=== PATIENT | female | born 1940 | race Caucasian/White ===

== ENCOUNTER → 2017-11-20 12:39 | Outpatient (CLI) | payer MEDICARE, MEDICAID, SELFPAY ==
[2017-11-20 13:57] LABS: Hemoglobin A1C 5.3 % (4.5-6.2)
== END ==
PROVIDERS: PCP Nurse Practitioner; Visit Provider Nurse Practitioner
DX: E11.9 Type 2 diabetes mellitus without complications (principal); Z83.3 Family history of diabetes mellitus
CPT/HCPCS: 36415; 83036

== ENCOUNTER 2017-12-23 16:16 | Outpatient (REF) | payer MEDICARE, MEDICAID, SELFPAY ==
[2017-12-23 22:01] LABS: Abs Immature Grans 0.01 k/cumm (0.0-0.09); Absolute Basophil Count 0.02 k/cumm (0.0-0.2); Absolute Eosinophil Count 0.28 k/cumm (0.0-0.7); Absolute Lymphocyte Count 1.99 k/cumm (1.2-3.4); Absolute Monocyte Count 0.81 k/cumm (0.11-0.7); Absolute Neutrophil Count 2.91 k/cumm (1.2-6.7); Basophils % 0.3; Eosinophils % 4.7; HCT 40.7 % (36.0-46.0); HGB 13.3 g/dL (12.0-15.5); Immature Grans % 0.2; Lymphocytes % 33.1; Mean Corp. HGB Concentration 32.7 g/dL (32.0-36.0); Mean Corpuscular Hemoglobin 32.8 pg (27.0-33.0); Mean Corpuscular Volume 100.5 fL (80-95); Mean Platelet Volume 11.1 fL (8.0-11.0); Monocytes % 13.5; Neutrophils % 48.2; Platelet Count 265 x1000/uL (130-400); RBC 4.05 m/cumm (4.00-5.20); RBC Distribution Width 14.3 % (11.7-14.6); White Blood Cell Count 6.02 k/cumm (4.4-10.8)
[2017-12-23 22:17] LABS: ALT 35 U/L (12-78); AST 24 U/L (15-37); Albumin 3.7 g/dL (3.4-5.0); Alkaline Phosphatase 103 U/L (46-116); Anion Gap 6.8 mmol/L (3-11); BUN 23 mg/dL (7-18); Bilirubin, Total 0.3 mg/dL (0.2-1.0); CO2 29.2 mmol/L (21.0-32.0); CREATININE 1.03 mg/dL (0.55-1.02); Chloride 103 mmol/L (98-107); Estimated GFR 51.82 (mL/min/1.73m2); Glucose 70 mg/dL (70-100); Potassium 4.7 mmol/L (3.5-5.1); Sodium 139 mmol/L (136-145)
== END 2017-12-23 16:36 ==
LOC: NCHCN 16:16
PROVIDERS: PCP Nurse Practitioner; Visit Provider Nurse Practitioner
DX: Z51.81 Encounter for therapeutic drug level monitoring (principal); G89.4 Chronic pain syndrome; E03.9 Hypothyroidism, unspecified
CPT/HCPCS: 80053; 85025

== ENCOUNTER 2018-04-01 16:34 | Outpatient (REF) | payer MEDICARE, MEDICAID, SELFPAY ==
[2018-04-01 21:03] LABS: Abs Immature Grans 0.02 k/cumm (0.0-0.09); Absolute Basophil Count 0.02 k/cumm (0.0-0.2); Absolute Eosinophil Count 0.39 k/cumm (0.0-0.7); Absolute Monocyte Count 0.82 k/cumm (0.11-0.7); Absolute Neutrophil Count 4.12 k/cumm (1.2-6.7); Basophils % 0.3; Eosinophils % 5.8; HCT 38.1 % (36.0-46.0); HGB 12.7 g/dL (12.0-15.5); Immature Grans % 0.3; Lymphocytes % 20.7; Mean Corp. HGB Concentration 33.3 g/dL (32.0-36.0); Mean Corpuscular Hemoglobin 33.7 pg (27.0-33.0); Mean Corpuscular Volume 101.1 fL (80-95); Monocytes % 12.1; Neutrophils % 60.8; Platelet Count 257 x1000/uL (130-400); RBC 3.77 m/cumm (4.00-5.20); RBC Distribution Width 14.5 % (11.7-14.6); White Blood Cell Count 6.77 k/cumm (4.4-10.8)
[2018-04-01 21:19] LABS: ALT 26 U/L (12-78); AST 24 U/L (15-37); Albumin 3.7 g/dL (3.4-5.0); Alkaline Phosphatase 107 U/L (46-116); Anion Gap 8.7 mmol/L (3-11); BUN 22 mg/dL (7-18); Bilirubin, Total 0.4 mg/dL (0.2-1.0); CO2 28.3 mmol/L (21.0-32.0); CREATININE 1.09 mg/dL (0.55-1.02); Calcium 9.4 mg/dL (8.5-10.1); Chloride 103 mmol/L (98-107); Estimated GFR 48.55 (mL/min/1.73m2); Glucose 92 mg/dL (70-100); Magnesium 1.8 mg/dL (1.8-2.4); Potassium 4.7 mmol/L (3.5-5.1); Sodium 140 mmol/L (136-145); Total Protein 7.2 g/dL (6.4-8.2)
== END 2018-04-01 16:54 ==
LOC: NCHCN 16:34
PROVIDERS: PCP Nurse Practitioner; Visit Provider Nurse Practitioner
DX: G25.81 Restless legs syndrome (principal); Z51.81 Encounter for therapeutic drug level monitoring; Z79.899 Other long term (current) drug therapy
CPT/HCPCS: 80053; 83735; 85025

== ENCOUNTER 2018-10-07 15:46 | Outpatient (REF) | payer MEDICARE, MEDICAID, SELFPAY ==
[2018-10-07 20:56] LABS: Abs Immature Grans 0.02 k/cumm (0.0-0.09); Absolute Basophil Count 0.02 k/cumm (0.0-0.2); Absolute Eosinophil Count 0.34 k/cumm (0.0-0.7); Absolute Lymphocyte Count 1.66 k/cumm (1.2-3.4); Absolute Neutrophil Count 3.08 k/cumm (1.2-6.7); Basophils % 0.3; Eosinophils % 5.7; HGB 12.9 g/dL (12.0-15.5); Immature Grans % 0.3; Mean Corp. HGB Concentration 33.1 g/dL (32.0-36.0); Mean Corpuscular Hemoglobin 33.4 pg (27.0-33.0); Mean Platelet Volume 11.2 fL (8.0-11.0); Monocytes % 13.5; Neutrophils % 52.2; Platelet Count 272 x1000/uL (130-400); RBC 3.86 m/cumm (4.00-5.20); White Blood Cell Count 5.92 k/cumm (4.4-10.8)
[2018-10-07 21:30] LABS: ALT 31 U/L (12-78); AST 19 U/L (15-37); Anion Gap 7.8 mmol/L (3-11); BUN 21 mg/dL (7-18); CO2 28.2 mmol/L (21.0-32.0); CREATININE 0.96 mg/dL (0.55-1.02); Calcium 9.3 mg/dL (8.5-10.1); Chloride 106 mmol/L (98-107); Estimated GFR 56.06 (mL/min/1.73m2); Glucose 108 mg/dL (70-100); Potassium 4.5 mmol/L (3.5-5.1); Sodium 142 mmol/L (136-145); TSH (W/Ref FT4) 4.08 uIU/mL (0.358-3.74)
[2018-10-07 22:11] LABS: FREE T4 0.99 ng/dL (0.76-1.46)
== END 2018-10-07 16:06 ==
LOC: NCHCN 15:46
PROVIDERS: PCP Nurse Practitioner Family; Visit Provider Nurse Practitioner Family
DX: I10 Essential (primary) hypertension (principal); M06.9 Rheumatoid arthritis, unspecified; E03.9 Hypothyroidism, unspecified
CPT/HCPCS: 80048; 84439; 84443; 84450; 84460; 85025

== ENCOUNTER 2018-12-14 11:13 | Outpatient (CLI) | payer MEDICARE, MEDICAID, SELFPAY ==
[2018-12-14 13:02] LABS: TSH 4.08 uIU/mL (0.36-3.74)
== END 2018-12-14 11:33 ==
PROVIDERS: PCP Nurse Practitioner Family; Visit Provider Nurse Practitioner Family
DX: E03.9 Hypothyroidism, unspecified (principal)
CPT/HCPCS: 36415; 84443

== ENCOUNTER 2018-12-27 15:57 | Emergency (ER) | payer MEDICARE, MEDICAID, SELFPAY ==
[2018-12-27 15:54] VITALS: BP 150/70; PULSE 100; RESP 18; TEMP 36.8; O2SAT 96
--- NOTE | 2018-12-27 16:37 | ED.GENADUL_ITS ---
Discharge Plan Disposition Patient Disposition: HOME Condition: Improving Discharge Details Chief Complaint: Nk/Back Pain Clinical Impression: Back pain Primary Care Provider: Amber Ortega ED Provider: Sin Ching Home Meds and New Rx's Prescriptions: Continued aspirin [Ecotrin Low Strength] 81 MG tablet,delayed release (DR/EC) 1 tab PO DAILY RF: 0 calcium carbonate [Caltrate 600] 600 MG tablet 1 tab PO BID RF: 0 vitamin E 400 UNIT capsule 1 cap PO BID RF: 0 One Daily Women's 1 EACH tablet 1 tab-cap PO DAILY RF: 0 NARCOTIC CONTRACT RF: 0 [id number] [Osteo Bi-Flex (5-Loxin)] 1 EACH tablet 1 ea PO DAILY RF: 0 atenolol [Tenormin] 25 MG tablet 1 tab PO DAILY Qty: 90 RF: 4 folic acid 1 MG tablet 1 tab PO DAILY Qty: 90 RF: 12 quetiapine [Seroquel] 50 MG tablet 1 tab PO HS Qty: 90 RF: 12 bupropion HCl [Wellbutrin SR] 100 MG tablet extended release 12 hr 1 tab PO DAILY Qty: 90 RF: 4 levothyroxine 75 MCG tablet 75 mcg PO DAILY Qty: 90 RF: 12 ropinirole 0.25 MG tablet 1 - 3 tab PO HS Qty: 90 RF: 3 Narcan 4 MG spray,non-aerosol 4 mg NS ONCE PRNQty: 2 RF: 12 morphine 15 MG tablet extended release 15 mg PO QPM Qty: 15 RF: 0 morphine 30 MG tablet extended release 0 PO QAM Qty: 11 RF: 0 folic acid 1 MG tablet 1 mg PO DAILY RF: 0 oxacillin in dextrose(iso-osm) 2 GM/50 ML piggyback 2 gm IVPB Q4H RF: 0 prednisone 10 MG tablet See Taper mg PO DAILY Qty: 15 RF: 0 Discharge Instructions Instructions: Back Pain (ED) Additional Instructions: Please resume taking your normally prescribed pain medication, morphine, and perform your normal activities with restrictions of any heavy lifting severe bending or twisting. Follow-up with your primary care provider if your back pain continues. You may leave your pain patch that was provided to you on until tomorrow morning. Return to the emergency department for any new or significant worsening of symptoms or further concerns. Referrals: Amber Ortega [Primary Care Provider] - (As needed for reassessment or if not improving) Discharge Data Discharge Date/Time-TO BE ENTERED AT DEPARTURE: 12/27/18 18:09 Medical Decision Making Patient presenting the emergency department for chief complaint of back pain. Patient states that her back pain started this morning when she woke up and attempted to get out of bed. She states that she took some of her normal prescribe morphine which did not seem to eliminate the back pain and due to this ended up calling 911 for transfer to the emergency department. Patient states that the this is similar to her previous episodes of back pain, she states that she gets these both in the lower and mid back, patient denies any injury or trauma, chest pain, pain with inspiration, cough, fever chills. Physical exam shows clear lung sounds, normal cardiac exam, significant scoliosis of the spine, patient stating superficial right-sided thoracic mid back pain without any specific point tenderness, no vertebral tenderness, no rash or abnormality noted. Given significant scoliosis I do feel that radiological imaging is warranted to assess for any acute changes but otherwise I feel this is a exacerbation of her chronic back pain. Pending results patient given Tylenol, IM morphine, and lidocaine patch Review of imaging shows Degenerative spondylosis and scoliosis.2. Anterior wedge fracture deformities of L1 and L2 of uncertain age, but likely old. Correlate with location of patient's pain. Patient does not currently have any low back pain so I do not feel that noted fracture is new. Patient was reassessed and states improvement of pain but not fully eliminated. I feel that this is reasonable and patient is agreeable to discharge. She was encouraged to resume her normal prescribe pain medication as written by her primary care provider. Patient to follow-up with primary care provider as needed for reassessment or return for new or worsening symptoms. After discussion of diagnosis and plan of care patient has no further needs, questions, or concerns and states clear understanding to return to the emergency department for any worsening symptoms. HPI General Mode of arrival: EMS . Date/Time Provider Initiated Documentation: 12/27/18 16:11 . Limitations to Documentation: no limitations . Information obtained by: patient, EMS and RN notes reviewed . History of Present Illness 78 year old F presents to the emergency department with the chief complaint of back pain, described as severe and similar to prior episodes, with intensity rated at 10. Quality is described as sharp, and is localized to the back. Patient reports no radiation. Patient started experiencing this hour(s) (8) and it has been constant. No relieving factors improve symptom(s), Patient notes no other symptoms.. Related Data Home Medications Medication Instructions Recorded Confirmed One Daily Women's 1 tab-cap PO DAILY tab-cap 07/13/12 12/27/18 aspirin [Ecotrin Low Strength] 1 tab PO DAILY 07/13/12 12/27/18 calcium carbonate [Caltrate 600] 1 tab PO BID 07/13/12 12/27/18 vitamin E 1 cap PO BID 07/13/12 12/27/18 Narcotic Contract 01/12/13 12/19/14 [id number] serr 1 ea PO DAILY 04/23/15 12/27/18 [Osteo Bi-Flex (5-Loxin)] atenolol [Tenormin] 1 tab PO DAILY #90 tab-cap 03/11/16 12/27/18 bupropion HCl [Wellbutrin SR] 1 tab PO DAILY #90 tab 03/11/16 12/27/18 folic acid 1 tab PO DAILY #90 tab-cap 03/11/16 12/27/18 levothyroxine 75 mcg PO DAILY #90 tab-cap 03/11/12/27/18 quetiapine [Seroquel] 1 tab PO HS #90 tab-cap 03/11/16 12/27/18 ropinirole 1 - 3 tab PO HS #90 tab-cap 05/20/16 12/27/18 Narcan 4 mg NS ONCE PRN #2 spray 08/07/16 12/27/18 morphine 15 mg PO QPM #15 tab-cap 08/07/16 12/27/18 morphine 0 PO QAM #11 tab 10/29/16 folic acid 1 mg PO DAILY tab 06/01/17 12/27/18 oxacillin in dextrose(iso-osm) 2 gm IVPB Q4H bag 06/01/17 12/27/18 prednisone See Taper PO DAILY #15 tab 06/01/17 12/27/18 Previous Rx's Medication Instructions Recorded folic acid 1 mg PO DAILY tab 06/01/17 oxacillin in dextrose(iso-osm) 2 gm IVPB Q4H bag 06/01/17 prednisone See Taper PO DAILY #15 tab 06/01/17 Allergies Allergy/AdvReac Type Severity Reaction Status Date / Time No Known Allergies Allergy Unverified 12/27/18 16:00 General Stated Complaint: Nk/Back Pain PAYTON: 3 Review of Systems Constitutional Constitutional: Denies chills, Denies fever(s) and Denies weakness Cardiovascular Cardiovascular: Denies chest pain and Denies dyspnea on exertion Respiratory Respiratory: Denies cough, Denies pain on inspiration and Denies dyspnea on exertion Gastrointestinal Gastrointestinal: Denies abdominal pain, Denies change in bowel habits, Denies diarrhea, Denies nausea and Denies vomiting Genitourinary Genitourinary: Denies urinary incontinence Musculoskeletal Musculoskeletal: Reports as per HPI, Reports back pain and Denies tingling Neurologic Neurologic: Denies sensory deficit, Denies tingling, Denies paresthesias and Denies weakness PFS Surgical History Cholecystectomy Hysterectomy, 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 Sister Stroke Brother Hyperlipidemia Brother Substance abuse Alcohol abuse Son Hyperlipidemia Daughter Diabetes Daughter Alcohol abuse Daughter No problems noted. Grandfather Heart disease Grandfather Heart disease Grandmother Diabetes Grandmother Heart disease Social History Smoking/Tobacco Use Status: Current every day Drug use: Never Do you feel safe in your relationship?: Yes Exam Const General: cooperative and no acute distress Orientation: alert, awake and oriented x3 Neck Neck: normal visual inspection, full ROM and no meningeal signs Resp Effort & Inspection: normal respiratory effort Auscultation: clear to auscultation bilaterally Cardio Rate: regular rate Rhythm: regular rhythm Heart Sounds: S1 normal and S2 normal Back/Spine/Pelvis Thoracic/Lumbar Spine: pain with thoraco-lumbar ROM, paraspinal tenderness (right mid back), thoraco-lumbar ROM limited, scoliosis, No thoraco-lumbar spasm, No thoracic spinal tenderness and No lumbar spinal tenderness Neuro General: alert, awake and oriented x3 Course Vital Signs Vital signs: Vital Signs Temperature 36.8 C 12/27/18 15:54 Pulse 100 H 12/27/18 15:54 Respiratory Rate 18 12/27/18 15:54 Blood Pressure 150/70 H 12/27/18 15:54 Pulse Oximetry 96 12/27/18 15:54 Temperature 36.8 C 12/27/18 15:54 Temperature Source Skin 12/27/18 15:54 Pulse 100 H 12/27/18 15:54 Respiratory Rate 18 12/27/18 15:54 Respiratory Effort 12/27/18 16:34 Respiratory Depth Normal 12/27/18 16:04 Blood Pressure 150/70 H 12/27/18 15:54 Blood Pressure Position Sitting 12/27/18 15:54 Pulse Oximetry 96 12/27/18 15:54 Oxygen Delivery Method Room Air 12/27/18 15:54 Oxygen Flow Rate 0 12/27/18 15:54 Pain Level 10 12/27/18 16:04 Comment 12/27/18 15:54
--- NOTE | 2018-12-27 16:39 | DI.RAD_ITS ---
EXAM: XR THORACIC SPINE COMPLETE INDICATION: back pain-mid thoracic. COMPARISON: THORACIC SPINE from 03/13/2011 CHEST 2 VIEWS PA,LAT from 06/08/2014 CHEST 2 VIEWS PA,LAT from 05/24/2017 PORTABLE AP CHEST, POST LINE from 06/01/2017 TECHNIQUE: 2D digital imaging was performed. FINDINGS: There is marked scoliosis of the lumbar spine which is apex to the left. There is lumbar spine inst rumentation from prior fusion. There are degenerative changes seen throughout the thoracic spine. A nterior wedge deformities are seen at L1 and L2. They are likely old. The L1 compression deformity was present on the x-ray of the chest from 06/08/2014. The soft tissues are unremarkable. There are surgical clips in the right upper quadrant of the abdomen likely representing prior cholecystectomy. IMPRESSION: 1. Degenerative changes in the thoracic spine. 2. Lumbar scoliosis. 3. Anterior wedge deformities of L1 and L2 of uncertain age but likely old. Please correlate with th e patient's clinical findings.
[2018-12-27] MEDS: Acetaminophen 325 MG TAB 650 MG PO (16:46)
[2018-12-27] MEDS: Lidocaine 5% Patch 1 PATCH TP (16:46)
[2018-12-27] MEDS: MORPHine 10 MG/ML VIAL 6 MG IM (16:47)
--- NOTE | 2018-12-27 17:56 | DI.VRAD_ITS ---
PROCEDURE INFORMATION: Exam: XR Thoracic Spine, 3 Views Exam date and time: 12/27/2018 5:29 PM Clinical history: 78 years old, female; Pain in thoracic spine; Prior surgery; Patient HX: Pain mid-thoracic TECHNIQUE: Imaging protocol: XR of the thoracic spine, 3 views. COMPARISON: No relevant prior studies available. FINDINGS: Vertebrae: Severe scoliosis of the upper lumbar spine, apex to the left. Degenerative spondylosis throughout the thoracic spine. Anterior wedge fracture deformities of L1 and L2 of uncertain age, but likely old. Lower lumbar spinal fusion instrumentation, incompletely visualized. Degenerative spondylosis of the cervical spine. Soft tissues: Unremarkable. IMPRESSION: 1. Degenerative spondylosis and scoliosis. 2. Anterior wedge fracture deformities of L1 and L2 of uncertain age, but likely old. Correlate with location of patient's pain. Dictated and Authenticated by: Arnav López MD. Ordering:GRETEL Vogt MD
[2018-12-27 18:12] VITALS: BP 159/77; PULSE 85; RESP 20; O2SAT 94
== END 2018-12-27 18:09 | disposition home or self-care (01) ==
PROVIDERS: Emergency Provider Nurse Practitioner Family; PCP Nurse Practitioner Family
DX: M54.5 Low back pain (principal)
CPT/HCPCS: 96372; 99284; 72072; J2270

== ENCOUNTER 2019-04-07 16:59 | Outpatient (REF) | payer MEDICARE, MEDICAID, SELFPAY ==
[2019-04-07 22:03] LABS: TSH (W/Ref FT4) 3.74 uIU/mL (0.36-3.74)
== END 2019-04-07 17:19 ==
LOC: NCHCN 16:59
PROVIDERS: PCP Nurse Practitioner Family; Visit Provider Nurse Practitioner Family
DX: E03.9 Hypothyroidism, unspecified (principal)
CPT/HCPCS: 84443

== ENCOUNTER 2019-11-23 17:38 | Emergency (ER) | payer MEDICARE, MEDICAID, SELFPAY ==
[2019-11-23] VITALS (30 sets, daily range): BP systolic 123–142; BP diastolic 51–81; PULSE 79–101; RESP 11–25; TEMP 36.6; O2SAT 88–99
--- NOTE | 2019-11-23 17:59 | W.ED.GENAD ---
Discharge Plan Discharge Details Chief Complaint: Orthopedic Primary Care Provider: Amber Ortega ED Provider: Zander Canela Home Meds and New Rx's Prescriptions: No Action aspirin [Ecotrin Low Strength] 81 MG tablet,delayed release (DR/EC) 1 tab PO DAILY RF: 0 vitamin E 400 UNIT capsule 1 cap PO BID RF: 0 One Daily Women's 1 EACH tablet 1 tab-cap PO DAILY RF: 0 NARCOTIC CONTRACT RF: 0 atenolol [Tenormin] 25 MG tablet 1 tab PO DAILY Qty: 90 RF: 4 quetiapine [Seroquel] 50 MG tablet 1 tab PO HS Qty: 90 RF: 12 bupropion HCl [Wellbutrin SR] 100 MG tablet extended release 12 hr 1 tab PO DAILY Qty: 90 RF: 4 levothyroxine 75 MCG tablet 75 mcg PO DAILY Qty: 90 RF: 12 Narcan 4 MG spray,non-aerosol 4 mg NS ONCE PRNQty: 2 RF: 12 morphine 15 MG tablet extended release 15 mg PO QPM Qty: 15 RF: 0 morphine 30 MG tablet extended release 0 PO QAM Qty: 11 RF: 0 folic acid 1 MG tablet 1 mg PO DAILY RF: 0 Medical Decision Making 79-year-old female presents from home via EMS with complaint of 1 month of lower extremity pain for muscular spasms that seem to be worse in the left leg versus the right. She is afebrile and interactive. I do note muscular spasm of the left calf during my exam which the patient states is painful. Her daughter states her mother has had a one-month decline with increased need for sleep, decreased activity, decreased p.o. intake. She has had in-home home health. She has not had any changes to medications but does continue to take morphine as needed for chronic back pain. She has developed bedsores. She has not had any falls per her daughter. They have begun to consider hospice care. Given the muscular spasms and chief complaint of leg pain, differential diagnosis includes dehydration, electrolyte abnormalities, general decline and malnutrition. Patient had IV access established, given small fluid bolus, given magnesium for smooth muscle relaxation. Mepilex was placed over her coccyx pressure ulcerations. She is referred for laboratory testing and urinalysis. In and out catheterized urine reveals scant urine that that is concentrated with specific gravity greater than 1.03. Remainder of the labs reveal hypomagnesemia of 1.7. Other chemistries show sodium 137, potassium 3.9, chloride 99, bicarb 31, BUN 15, creatinine 0.9. Albumin is noted to be 2.5. Her CBC shows a white count of 13, hemoglobin 10, hematocrit 33, platelets 423. After fluids and magnesium patient is starting to feel some improvement. I discussed with her daughter her findings including evidence of dehydration, hypomagnesemia, poor nutrition. They wish for her to return to home this evening, they will consider further hospice/palliative care and I will ask care management to follow-up on this. HPI General Mode of arrival: EMS. Date/Time Provider Initiated Documentation: 11/23/19 17:52. Limitations to Documentation: no limitations. Information obtained by: patient, family and EMS. History of Present Illness 79 year old F presents to the emergency department with the chief complaint of Left greater than right leg pain and spasms for 1 month, described as moderate, and is localized to the left, right and lower extremity. Patient started experiencing this week(s) and it has been intermittent. No relieving factors improve symptom(s), No exacerbating factors reported . Patient notes denies fever/chills. Patient did receive the following treatments prior to arrival, none Related Data Home Medications Medication Instructions Recorded Confirmed One Daily Women's 1 tab-cap PO DAILY tab-cap 07/13/12 11/23/19 aspirin [Ecotrin Low Strength] 1 tab PO DAILY 07/13/12 11/23/19 vitamin E 1 cap PO BID 07/13/12 11/23/19 Narcotic Contract 01/12/13 12/19/14 atenolol [Tenormin] 1 tab PO DAILY #90 tab-cap 03/11/16 11/23/19 bupropion HCl [Wellbutrin SR] 1 tab PO DAILY #90 tab 03/11/16 11/23/19 levothyroxine 75 mcg PO DAILY #90 tab-cap 03/11/16 11/23/19 quetiapine [Seroquel] 1 tab PO HS #90 tab-cap 03/11/16 11/23/19 Narcan 4 mg NS ONCE PRN #2 spray 08/07/16 11/23/19 morphine 15 mg PO QPM #15 tab-cap 08/07/16 11/23/19 morphine 0 PO QAM #11 tab 10/29/16 folic acid 1 mg PO DAILY tab 06/01/17 11/23/19 Previous Rx's Medication Instructions Recorded folic acid 1 mg PO DAILY tab 06/01/17 Allergies Allergy/AdvReac Type Severity Reaction Status Date / Time No Known Allergies Allergy Unverified 11/23/19 17:55 General Stated Complaint: Orthopedic PAYTON: 3 Review of Systems Narrative: Dry cough. No travel. She is otherwise been well. No change to medications. 6 systems reviewed and otherwise negative [facility] Surgical History Cholecystectomy Hysterectomy, 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 Sister Stroke Brother Hyperlipidemia Brother Substance abuse Alcohol abuse Son Hyperlipidemia Daughter Diabetes Daughter Alcohol abuse Daughter No problems noted. Grandfather Heart disease Grandfather Heart disease Grandmother Diabetes Grandmother Heart disease Social History Smoking/Tobacco Use Status: Former Tobacco Use Alcohol Intake: former Drug use: Never Do you feel safe in your relationship?: Yes Exam Narrative Exam Narrative: GEN: awake, alert. Pleasant, well groomed, interactive. HEAD: Normocephalic, atraumatic ENT: Mucous membranes moist, oropharynx unremarkable, External ear exam unremarkable EYES: PERRL, EOMI NECK: Full ROM, no YOSELIN, no menigismus CHEST/RESP: Nontender, clear to auscultation bilateral, no wheeze/rhonchi/rales CARDIOVASCULAR: RRR, no murmur, rub jessica. 2+ Rad pulse bilateral ABDOMEN: Soft, nontender, no mass. +Bowel sounds. On examination of the back there is coccyx pressure ulcerations bilaterally. EXT: Left calf with muscular spasm present. Range of motion is limited but motor is graded 4 out of 5 throughout the lower extremity Neuro: Grossly normal neurologic exam, conversant, interactive. Psych: Speech fluent Course Vital Signs Vital signs: Vital Signs Temperature 36.6 C 11/23/19 17:42 Pulse 92 H 11/23/19 17:42 Respiratory Rate 18 11/23/19 17:42 Blood Pressure 135/54 L 11/23/19 17:42 Pulse Oximetry 92 L 11/23/19 17:42 Temperature 36.6 C 11/23/19 17:42 Temperature Source Temporal Artery Scan 11/23/19 17:42 Pulse 92 H 11/23/19 17:42 Respiratory Rate 18 11/23/19 17:42 Respiratory Effort Short of Breath 11/23/19 17:47 Blood Pressure 135/54 L 11/23/19 17:42 Blood Pressure Position Supine 11/23/19 17:42 Pulse Oximetry 92 L 11/23/19 17:42 Oxygen Delivery Method Room Air 11/23/19 17:42 Oxygen Flow Rate 0 11/23/19 17:42
[2019-11-23] MEDS: Normal Saline 500 ML IV (18:14)
[2019-11-23] MEDS: MAGNESIUM SULFATE 2 GM/50 ML BAG IVPB (18:14)
[2019-11-23 18:20] LABS: Abs Immature Grans 0.08 10^3/uL (0.0-0.06); Absolute Basophil Count 0.03 10^3/uL (0.0-0.2); Absolute Eosinophil Count 0.24 10^3/uL (0.0-0.7); Absolute Lymphocyte Count 1.16 10^3/uL (1.2-3.4); Absolute Monocyte Count 1.42 10^3/uL (0.1-0.8); Absolute Neutrophil Count 10.37 10^3/uL (1.2-6.7); Basophils % 0.2; Eosinophils % 1.8; HCT 33.4 % (36.0-46.0); HGB 10.3 g/dL (11.2-15.7); Immature Grans % 0.6; Lymphocytes % 8.7; MCH 28.9 pg (27.0-33.0); MCHC 30.8 % (32.0-36.0); MCV 93.8 fL (80-95); MPV 9.7 fL (8.0-11.0); Monocytes % 10.7; Nucleated RBC 0 %; Platelet Count 423 10^3/uL (130-400); RBC 3.56 10^6/uL (3.93-5.22); RDW 16.4 % (11.7-14.6); RDW-SD 55.9 fL; WBC 13.29 10^3/uL (4.4-10.8)
[2019-11-23 18:33] LABS: ALT 18 U/L (14-59); AST 20 U/L (15-37); Albumin 2.5 g/dL (3.4-5.0); Alkaline Phosphatase 113 U/L (46-116); Anion Gap 6.8 mmol/L (3-11); BUN 15 mg/dL (7-18); Bilirubin, Total 0.4 mg/dL (0.2-1.0); CO2 31.2 mmol/L (21.0-32.0); CREATININE 0.91 mg/dL (0.55-1.02); Calcium 10.3 mg/dL (8.5-10.1); Chloride 99 mmol/L (98-107); Estimated GFR 59.48 (mL/min/1.73m2); Glucose 143 mg/dL (74-106); Magnesium 1.7 mg/dL (1.8-2.4); Potassium 3.9 mmol/L (3.5-5.1); Sodium 137 mmol/L (136-145)
[2019-11-23 18:41] LABS: Bilirubin Negative (Negative); Blood Negative (Negative); Clarity Sl Cloudy (Clear); Glucose Negative (Negative); Ketones Negative (Negative); Leukocyte Esterase Negative (Negative); Nitrite Negative (Negative); Specific Gravity >= 1.030 (1.005-1.025); Urobilinogen 0.2 EU/dL (Up TO 0.2); pH 5.5 (5-8)
--- NOTE | 2019-11-23 19:23 | NUR.NOTE ---
Nursing Notereferal to pmd sent to cm on 11/23/19
--- NOTE | 2019-11-25 11:22 | PDOC.ERCMPRO ---
- If Service Date Differs Date of service: 11/25/19 Time of Service: 11:22 Care Management Progress Note At the request of ED provider, CM coordinates referral for outpatient palliative care consult.
== END 2019-11-23 20:55 | disposition home or self-care (01) ==
PROVIDERS: Emergency Provider Emergency Medicine; PCP Nurse Practitioner Family
DX: E86.0 Dehydration (principal); E88.09 Other disorders of plasma-protein metabolism, not elsewhere classified; E83.42 Hypomagnesemia; L89.159 Pressure ulcer of sacral region, unspecified stage; M62.831 Muscle spasm of calf
CPT/HCPCS: 36415; 51701; 80053; 96361; 96365; 96366; 99284; 81003; 83735; 85025

== ENCOUNTER 2019-12-03 12:02 | Inpatient (IN) | payer MEDICARE, MEDICAID, SELFPAY ==
[2019-12-03] VITALS (34 sets, daily range): BP systolic 84–139; BP diastolic 44–90; PULSE 78–104; RESP 10–25; TEMP 36.3–36.6; O2SAT 89–96
--- NOTE | 2019-12-03 11:45 | RT.EKG_ITS ---
APPROVED REPORT Exam: Resting ECG Patient Location: E HR:88 bpm ECG Measurements Heart Rate 88 AXIS NH 164 P 9 QRSd 93 QRS 13 QT 343 T 5 QTc 414 Conclusion Sinus rhythm...normal P axis, V-rate 60- 99 artifact V3
--- NOTE | 2019-12-03 12:13 | DI.RAD_ITS ---
EXAM: XR CHEST 1V IN DI DEPT CLINICAL HISTORY: weakness TECHNIQUE: 2D digital imaging was performed. COMPARISON: CR PORTABLE AP CHEST, POST LINE from 06/01/2017 FINDINGS: There is complete opacification of the left hemithorax. There is marked left-sided volume loss. The right lung appears clear. The aortic arch is calcified. The cardiac silhouette is obscured. IMPRESSION: Left-sided volume loss with complete opacification. DATA REPOSITORY: RADIATION DOSE DELIVERED:
[2019-12-03 12:32] LABS: Abs Immature Grans 0.09 10^3/uL (0.0-0.06); Absolute Eosinophil Count 0.32 10^3/uL (0.0-0.7); Absolute Lymphocyte Count 1.11 10^3/uL (1.2-3.4); Absolute Monocyte Count 0.62 10^3/uL (0.1-0.8); Basophils % 0.3; Eosinophils % 2.1; HCT 35.3 % (36.0-46.0); HGB 10.7 g/dL (11.2-15.7); Immature Grans % 0.6; Lymphocytes % 7.3; MCH 28.8 pg (27.0-33.0); MCHC 30.3 % (32.0-36.0); MCV 95.1 fL (80-95); MPV 9.5 fL (8.0-11.0); Monocytes % 4.1; Neutrophils % 85.6; Nucleated RBC 0 %; Platelet Count 468 10^3/uL (130-400); RBC 3.71 10^6/uL (3.93-5.22); RDW 16.5 % (11.7-14.6); RDW-SD 57.1 fL; WBC 15.23 10^3/uL (4.4-10.8)
[2019-12-03 12:36] LABS: Absolute Basophil Count 0.05 10^3/uL (0.0-0.2); Absolute Neutrophil Count 13.04 10^3/uL (1.2-6.7)
[2019-12-03 12:54] LABS: ALT 28 U/L (14-59); AST 23 U/L (15-37); Albumin 2.5 g/dL (3.4-5.0); Alkaline Phosphatase 133 U/L (46-116); Anion Gap 3.3 mmol/L (3-11); BUN 24 mg/dL (7-18); Bilirubin, Total 0.5 mg/dL (0.2-1.0); CO2 32.7 mmol/L (21.0-32.0); CREATININE 0.98 mg/dL (0.55-1.02); Calcium 10.5 mg/dL (8.5-10.1); Chloride 103 mmol/L (98-107); Estimated GFR 54.61 (mL/min/1.73m2); Glucose 135 mg/dL (74-106); Potassium 4.1 mmol/L (3.5-5.1); Sodium 139 mmol/L (136-145); TSH (W/Ref FT4) 2.44 uIU/mL (0.36-3.74); Total Protein 7.1 g/dL (6.4-8.2)
[2019-12-03 12:57] LABS: Troponin I 0.16 ng/mL (<0.06)
--- NOTE | 2019-12-03 13:00 | RT.EKG_ITS ---
APPROVED REPORT Exam: Resting ECG Patient Location: E HR:90 bpm ECG Measurements Heart Rate 90 AXIS KS 65 P 0 QRSd 97 QRS 31 QT 354 T 2 QTc 434 Conclusion Sinus rhythm...normal P axis, V-rate 60- 99
--- NOTE | 2019-12-03 13:07 | DI.VRAD_ITS ---
PROCEDURE INFORMATION: Exam: CT Head Without Contrast Exam date and time: 12/03/2019 12:42 PM Age: 79 years old Clinical indication: Pain; Headache TECHNIQUE: Imaging protocol: Computed tomography of the head without contrast. COMPARISON: No relevant prior studies available. FINDINGS: Brain: Umana-white matter differentiation is normal. There is no intra-axial hemorrhage. There is no mass effect or midline shift. There are confluent and patchy foci of periventricular and subcortical white matter hypodensity which are nonspecific but could reflect sequela of chronic hypertension, chronic headache or chronic microvascular ischemic disease. There is partial empty sella. Ventricles: There is parenchymal volume loss with compensatory dilatation of ventricles, sulci and basilar cisterns. There is no extra-axial fluid collection. 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 Calvarium and base of the skull are intact. Sinuses: Visualized sinuses are unremarkable. No fluid levels. Mastoid air cells: Visualized mastoid air cells are well aerated. Orbits: Patient is status post cataract extraction in the right globe. Vasculature: There are heavy calcifications of the intradural segment of the left vertebral artery. There are calcifications of the bilateral internal carotid arteries at the siphons. Soft tissues: Unremarkable. IMPRESSION: 1. No acute intracranial abnormality. No acute ischemia or mass effect or acute intracranial hemorrhage. 2. Confluent and patchy foci of periventricular and subcortical white matter hypodensity are nonspecific but could reflect sequela of chronic hypertension, chronic headache or chronic microvascular ischemic disease in a patient of this age. 3. Diffuse parenchymal volume loss. 4. 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 Dictated and Authenticated by: Lokesh Valenzuela MD. Ordering:TREVA Rowan MD
--- NOTE | 2019-12-03 13:15 | DI.CT_ITS ---
EXAM: CT CHEST W CLINICAL HISTORY: Complete L lung opacity,? Pneumo vs atelectasis, TECHNIQUE: Imaging Protocol: Axial computed tomography images with coronal and sagittal reformatted images were created and reviewed CONTRAST MATERIAL: Intravenous: Omnipaque 350 Contrast volume:70 ml. COMPARISON: CT CHEST WITH CONTRAST from 10/03/2009 CR PORTABLE AP CHEST, POST LINE from 06/01/2017 CR,XR XR THORACIC SPINE COMPLETE from 12/27/2018 CR,XR XR CHEST 1V IN DI DEPT from 12/03/2019 FINDINGS: There is near complete collapse of the left lobe. There is minimal aeration. There is a large round ed area occupying the left lower lobe measuring over 7 cm in diameter. This could represent a mass v ersus abscess. There is mass versus mucous plugging involving the left main bronchus. There is a sm all to moderate-sized left pleural effusion. No right pleural effusion is seen. There is mild respi ratory motion. The right lung appears clear. No adenopathy is seen. There is aortic and coronary a rtery calcification. Heart size is normal. The liver shows fatty infiltration. The patient is stat us post cholecystectomy. There is scarring and a small cyst at the upper pole of the right kidney. Pancreas is somewhat atrophic and partially visualized on the exam. Scoliosis and degenerative pemberton ges are noted in the spine. There is minimal anterior wedging of midthoracic vertebral bodies. Ther e is an abnormal lucency in the superior endplate of T6. The findings could represent a metastatic le gonzalez. IMPRESSION: Left-sided volume loss with obstruction at the level of the left main bronchus. Roughly 7 centimeter necrotic appearing mass versus abscess. RADIATION DOSE DELIVERED: Total DLP DATA REPOSITORY: All CT scans at this facility are submitted to the National Radiology Data Registry (NRDR) Dose Index Registry (DIR) with the [employer] (A[employer]). RADIATION OPTIMIZATION: All CT scans at this facility use at least one of these dose optimization te chniques: automated exposure control; mA and/or kV adjustment per patient size (includes targeted exa ms where dose is matched to clinical indication); or iterative reconstruction.
--- NOTE | 2019-12-03 13:18 | DI.VRAD_ITS ---
Addendum created by Lokesh Valenzuela DO on 12/03/2019 1:22:35 PM EDT: Critical finding was communicated to Dr. Gallardo at the time of dictation. Initial report created on 12/03/2019 1:18:00 PM EDT: PROCEDURE INFORMATION: Exam: XR Chest, 1 View Exam date and time: 12/03/2019 12:50 PM Age: 79 years old Clinical indication: Other: Weakness TECHNIQUE: Imaging protocol: XR of the chest Views: 1 view. COMPARISON: CR PORTABLE AP CHEST, POST LINE 06/01/2017 9:34 AM FINDINGS: Lungs: There is diffuse opacification of left lung which has low lung volume with elevation of left hemidiaphragm and leftward mediastinal shift. Pleural space: No pneumothorax. Heart/Mediastinum: There is mediastinal shift to left suggestive of marked left lung volume loss. Heart is not visualized and is obscured due to left lung opacification and leftward shift. Vasculature: There is moderate calcification of arch of aorta. Bones/joints: No acute abnormality. Gastrointestinal tract: There are nonspecific air-filled loops of the bowel below the hemidiaphragm which might be borderline dilated. IMPRESSION: Low left lung volume with complete left lung opacification , elevation of left hemidiaphragm and leftward midline shift suggest marked atelectasis or collapse of lung. Underlying small pleural effusion or consolidation in the left lung cannot be completely excluded. Critical finding is communicated to ER physician at the time of dictation. Dictated and Authenticated by: Lokesh Valenzuela MD. Ordering:TREVA Rowan MD
--- NOTE | 2019-12-03 13:33 | NUR.NOTE ---
Nursing Note: Stage II decubitus ulcer noted on coccyx during inspection with provider.
--- NOTE | 2019-12-03 14:24 | NUR.NOTE ---
Nursing Note: Indwelling garcia placed per provider.
[2019-12-03 14:25] LABS: Bilirubin Negative (Negative); Blood Negative (Negative); Clarity Sl Cloudy (Clear); Glucose Negative (Negative); Ketones Negative (Negative); Leukocyte Esterase Negative (Negative); Nitrite Negative (Negative); Specific Gravity >= 1.030 (1.005-1.025); Urobilinogen 0.2 EU/dL (Up TO 0.2); pH 5.5 (5-8)
[2019-12-03] MEDS: Omnipaque 350 MG/ML 100 ML BTL 70 ML IJ (14:34)
--- NOTE | 2019-12-03 15:24 | W.ED.GENAD ---
Discharge Plan Disposition Patient Disposition: [facility] INPATIENT Condition: Poor Discharge Details Clinical Impression: Collapse of left lung, Leukocytosis, unspecified, Weakness, Non-ST elevation AR (NSTEMI) Admit Date/Time: 12/03/19 14:43 Admit Provider: Kai Dolan Attending Provider: Kai Dolan Primary Care Provider: Amber Ortega ED Provider: Harpal Brush Discharge Data Discharge Date/Time-TO BE ENTERED AT DEPARTURE: 12/03/19 15:59 Medical Decision Making <KYRA Moreno - Last Filed: 12/03/19 16:27> This is an 79-year-old female with history of chronic pain, hypertension, COPD, anemia, presenting via EMS for increased generalized weakness, mild headache, and increased tiredness. I was able to speak with the patient's daughter who reports that she is at her normal baseline status today. Given her age, comorbidities, will initiate a cardiac work-up as well as a CT of her head given her headache. I am told that she took her aspirin today. Case was discussed with Dr. Gallardo who personally evaluated the patient. Please see his note. Laboratory values reveal nonspecific leukocytosis, troponin of 0.16. Initial EKG was reviewed and interpreted by Dr. Gallardo, please see his official report. Sinus rhythm, no STEMI. Chest x-ray read by radiology as left lung volume low with complete left lung opacification, elevation of the left hemidiaphragm and leftward midline shift suggesting marked atelectasis or collapse of lung. Underlying small pleural effusion or consolidation cannot be completely excluded. CT of head without contrast read as no acute intracranial abnormality, no acute ischemia or mass-effect or acute intracranial hemorrhage. Question chronic hypertension, chronic headache or chronic microvascular ischemia. Diffuse parenchymal volume loss. Patient is DNR, DNI, does not want heroic efforts made, does not want antibiotics. It would appear as though the patient is experiencing end NSTEMI. Unclear if there could be a viral myocarditis or other infectious process given her nonspecific leukocytosis. Given her grossly abnormal chest x-ray, CT imaging of the chest with contrast pending. Surprisingly she is compensating well. Heart rate in the 90s. O2 sats 92% on room air, last blood pressure was 124/62. Patient clearly requires admission, given that she is a DNR, DNI, does not want a chest tube, cardiac intervention, etc., I will reach out to our hospitalist team to discuss admission here. I did discuss these findings both with patient and daughter. Patient's daughter Mena understands her mother's wishes, understands the limitations that we are under given her wishes and is comfortable with her staying here at our facility. I discussed the case with our hospitalist team Dr. Dolan. He is agreeable to admission of the patient and at time of admission CT is pending. I did call him once the CT was completed to update him of the results. It was brought to my attention that the repeat troponin was trending upward. We reached out to Dr. Dolan to be sure that he was aware of the troponin. Patient continues to deny any chest pain or shortness of breath. Repeat EKG performed at 1316 reviewed and interpreted by Dr. Gallardo, please see his official report. Sinus rhythm, ventricular rate of 90, no STEMI. Medical Records Medical records reviewed: Yes I reviewed the patient's medical records. Imaging Data Radiologic Study: Attestation: I personally reviewed and interpreted this imaging study as follows: Imaging: CT Scan Radiologist's impression: CT of the chest with contrast read by radiology as complete collapse of left lung with mild to moderate left-sided pleural effusion. Left bronchus is not visualized beyond the left main bronchus suspicious of endoluminal central bronchial mass or large mucous plug. There is central hypodensity within the collapsed lung raising suspicion of mass or part of the lung which could be necrotic or markedly compressed. There is a leftward shift of midline mediastinal structures. Hepatic steatosis. Mild chronic interstitial lung disease of the right lung. Mild intra-and extrahepatic biliary dilatation which is thought to be due to cholecystectomy and advanced age. Mild loss of height of T7 and T8 which is thought to be due to chronic insufficiency basis. Lab Data Lab results reviewed: Yes I reviewed the patient's lab results. Lab results narrative: Laboratory Tests Range/Units 12/03/19 12/03/19 12/03/19 12:25 12:25 12:25 WBC (4.4-10.8) 10^3/uL 15.23 H RBC (3.93-5.22) 10^6/uL 3.71 L Hgb (11.2-15.7) g/dL 10.7 L Hct (36.0-46.0) % 35.3 L MCV (80-95) fL 95.1 H MCH (27.0-33.0) pg 28.8 MCHC (32.0-36.0) % 30.3 L RDW (11.7-14.6) % 16.5 H Plt Count (130-400) 10^3/uL 468 H MPV (8.0-11.0) fL 9.5 Immature Gran % 0.6 Neutrophils % 85.6 Lymphocytes % 7.3 Monocytes % 4.1 Eosinophils % 2.1 Basophils % 0.3 Nucleated RBC % % 0 Absolute Neutrophils (1.2-6.7) 10^3/uL 13.04 H Absolute Lymphocytes (1.2-3.4) 10^3/uL 1.11 L Absolute Monocytes (0.1-0.8) 10^3/uL 0.62 Absolute Eosinophils (0.0-0.7) 10^3/uL 0.32 Absolute Basophils (0.0-0.2) 10^3/uL 0.05 Sodium (136-145) mmol/L 139 Potassium (3.5-5.1) mmol/L 4.1 Chloride (98-107) mmol/L 103 Carbon Dioxide (21.0-32.0) mmol/L 32.7 H Anion Gap (3-11) mmol/L 3.3 BUN (7-18) mg/dL 24 H Creatinine (0.55-1.02) mg/dL 0.98 Estimated GFR/1.73 m2 (mL/min/1.73m2) 54.61 Glucose (74-106) mg/dL 135 H Calcium (8.5-10.1) mg/dL 10.5 H Magnesium (1.8-2.4) mg/dL 2.0 Total Bilirubin (0.2-1.0) mg/dL 0.5 AST (15-37) U/L 23 ALT (14-59) U/L 28 Alkaline Phosphatase (46-116) U/L 133 H Troponin I (<0.06) ng/mL 0.16 H* Total Protein (6.4-8.2) g/dL 7.1 Albumin (3.4-5.0) g/dL 2.5 L Procalcitonin ng/mL 0.1 TSH (0.36-3.74) uIU/mL 2.44 Urine Color (Yellow) Urine Clarity (Clear) Urine pH (5-8) Ur Specific [place] (1.005-1.025) Urine Protein (Negative) mg/dL Urine Ketones (Negative) mg/dL Urine Blood (Negative) Urine Nitrite (Negative) Urine Bilirubin (Negative) Urine Urobilinogen (Up TO 0.2) EU/dL Ur Leukocyte Esterase (Negative) Urine Glucose (Negative) mg/dL Range/Units 12/03/19 14:20 WBC (4.4-10.8) 10^3/uL RBC (3.93-5.22) 10^6/uL Hgb (11.2-15.7) g/dL Hct (36.0-46.0) % MCV (80-95) fL MCH (27.0-33.0) pg MCHC (32.0-36.0) % RDW (11.7-14.6) % Plt Count (130-400) 10^3/uL MPV (8.0-11.0) fL Immature Gran % Neutrophils % Lymphocytes % Monocytes % Eosinophils % Basophils % Nucleated RBC % % Absolute Neutrophils (1.2-6.7) 10^3/uL Absolute Lymphocytes (1.2-3.4) 10^3/uL Absolute Monocytes (0.1-0.8) 10^3/uL Absolute Eosinophils (0.0-0.7) 10^3/uL Absolute Basophils (0.0-0.2) 10^3/uL Sodium (136-145) mmol/L Potassium (3.5-5.1) mmol/L Chloride (98-107) mmol/L Carbon Dioxide (21.0-32.0) mmol/L Anion Gap (3-11) mmol/L BUN (7-18) mg/dL Creatinine (0.55-1.02) mg/dL Estimated GFR/1.73 m2 (mL/min/1.73m2) Glucose (74-106) mg/dL Calcium (8.5-10.1) mg/dL Magnesium (1.8-2.4) mg/dL Total Bilirubin (0.2-1.0) mg/dL AST (15-37) U/L ALT (14-59) U/L Alkaline Phosphatase (46-116) U/L Troponin I (<0.06) ng/mL Total Protein (6.4-8.2) g/dL Albumin (3.4-5.0) g/dL Procalcitonin ng/mL TSH (0.36-3.74) uIU/mL Urine Color (Yellow) Yellow Urine Clarity (Clear) Sl cloudy Urine pH (5-8) 5.5 Ur Specific [place] (1.005-1.025) >= 1.030 H Urine Protein (Negative) mg/dL Negative Urine Ketones (Negative) mg/dL Negative Urine Blood (Negative) Negative Urine Nitrite (Negative) Negative Urine Bilirubin (Negative) Negative Urine Urobilinogen (Up TO 0.2) EU/dL 0.2 Ur Leukocyte Esterase (Negative) Negative Urine Glucose (Negative) mg/dL Negative <Wilfred Gallardo MD - Last Filed: 12/24/19 13:52> Patient seen, examined, and discussed with KYRA Brush. I agree with treatment plan as discussed/documented. HPI <KYRA Moreno - Last Filed: 12/03/19 16:27> General Mode of arrival: EMS. Date/Time Provider Initiated Documentation: 12/03/19 12:05. Limitations to Documentation: altered mental status (Per daughter, at baseline). Information obtained by: patient, family and EMS. HPI Narrative: This is an 79-year-old female with history of decubitus ulcer of the coccyx, hypertension, COPD, microcytic anemia, who lives at home with her daughter. Patient is a DNR, DNI, no heroic measures. Apparently she woke up this morning feeling at her baseline. After having breakfast her daughter felt as though she was slightly more tired than her baseline, she had generalized weakness, and complained of a mild headache. Patient tells me that she often has headaches and this did not appear to be any different than her normal headache. She reports a mild dull left-sided headache now. She denies recent illness or trauma. She denies striking her head, visual changes, neck pain, chest pain, shortness of breath, abdominal pain, nausea, vomiting, diarrhea, dysuria, focal weakness, numbness, tingling, weakness. Patient is a rather vague and poor historian at her baseline. I was able to speak with her daughter who confirms that this is her mother's baseline mental status. All appropriate medications were taken this morning Related Data Home Medications Medication Instructions Recorded Confirmed aspirin [Ecotrin Low Strength] 1 tab PO DAILY 07/13/12 12/03/19 Narcotic Contract 01/12/13 12/19/14 bupropion HCl [Wellbutrin SR] 1 tab PO DAILY #90 tab 03/11/16 12/03/19 levothyroxine 75 mcg PO DAILY #90 tab-cap 03/11/16 12/03/19 quetiapine [Seroquel] 1 tab PO HS #90 tab-cap 03/11/16 12/03/19 Narcan 4 mg NS ONCE PRN #2 spray 08/07/16 12/03/19 morphine 15 mg PO .EVERY OTHER AMY #15 08/07/16 12/03/19 tab-cap morphine 30 mg PO QAM #11 tab 10/29/16 12/03/19 lidocaine 1 applic TOPICAL .2-3 X DAILY 12/03/19 12/03/19 methotrexate sodium 15 mg PO .Q Thursday12/03/19 12/03/19 metoprolol tartrate 25 mg PO BID 12/03/19 12/03/19 morphine 30 mg PO .EVERY OTHER AMY 12/03/19 12/03/19 amoxicillin-pot clavulanate 1 tab PO BID #10 tab 12/05/19 [Augmentin] fentanyl 50 mcg/hr transdermal 1 patch TRANSDERMAL Q72H #5 ea MDD 12/14/19 patch 1 patch Previous Rx's Medication Instructions Recorded amoxicillin-pot clavulanate 1 tab PO BID #10 tab 12/05/19 [Augmentin] fentanyl 50 mcg/hr transdermal 1 patch TRANSDERMAL Q72H #5 ea MDD 12/14/19 patch 1 patch Allergies Allergy/AdvReac Type Severity Reaction Status Date / Time No Known Allergies Allergy Unverified 12/03/19 12:13 General Stated Complaint: GenMedical PAYTON: 2 Review of Systems <KYRA Moreno - Last Filed: 12/03/19 16:27> Constitutional Constitutional: Reports fatigue and Denies fever(s) Eyes Eyes: Denies change in vision ENT Ears, Nose, Mouth, and Throat: Denies neck pain Cardiovascular Cardiovascular: Denies chest pain and Denies dyspnea Respiratory Respiratory: Denies cough and Denies dyspnea Gastrointestinal Gastrointestinal: Denies abdominal pain, Denies diarrhea, Denies nausea and Denies vomiting Genitourinary Genitourinary: Denies dysuria Musculoskeletal Musculoskeletal: Reports back pain (Chronic), Denies neck pain, Denies numbness and Denies tingling Integumentary/Breasts Skin/Breast: Denies rash Neurologic Neurologic: Denies numbness and Denies tingling Endocrine Endocrine: Reports fatigue Hematologic/Lymphatic Hematologic/Lymphatic: Denies easy bleeding and Denies easy bruising PFSH <KYRA Moreno - Last Filed: 12/03/19 16:27> Surgical History Cholecystectomy Hysterectomy, 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 Sister Stroke Brother Hyperlipidemia Brother Substance abuse Alcohol abuse Son Hyperlipidemia Daughter Diabetes Daughter Alcohol abuse Daughter No problems noted. Grandfather Heart disease Grandfather Heart disease Grandmother Diabetes Grandmother Heart disease Social History Smoking/Tobacco Use Status: Former Tobacco Use Alcohol Intake: former Drug use: Never Do you feel safe at home: Yes Do you feel safe in your relationship?: Yes Exam <KYRA Moreno - Last Filed: 12/03/19 16:27> Const General: cooperative and no acute distress Orientation: alert, awake, oriented to person, oriented to place and not oriented to time [facility] Head: normal to inspection, normocephalic and atraumatic General nose exam: external nose normal Face and sinus: normal facial exam Mouth: moist mucous membranes abnormal (Slightly dry) Throat: posterior oropharynx normal Eyes General: appearance normal, both eyes and all related structures Alignment and Position: alignment normal Periorbital: periorbital findings normal Eyelids: eyelids normal Conjunctivae: conjunctivae normal Sclera: sclerae normal Cornea: corneas normal EOM: EOM intact bilaterally Direct ophthalmoscopy: normal light reflex Neck Neck: normal visual inspection, full ROM, meningismus present, trachea midline, supple and nontender Chest Chest: normal inspection of the chest and normal palpation of entire chest wall Resp Effort & Inspection: normal respiratory effort and able to speak in complete sentences Auscultation: breath sounds absent on th left Cardio Rate: regular rate Rhythm: regular rhythm GI Palpation: soft and nontender Auscultation: normal bowel sounds Back/Spine/Pelvis Back: no CVA tenderness and back tenderness (Diffuse mild lumbar) Pelvis: other (Stage II-III decubitus ulcer, no local infection) Coccyx: other (Stage II-III decubitus ulcer, no local infection) Skin Rashes: other (Cinthya-like rash in pannus) Neuro General: patient alert, patient awake, oriented Patient Orientation: Person and Place, moves all extremities and no focal motor deficits Motor: muscle tone normal throughout and strength 5/5 throughout Sensory Exam: no sensory deficits noted Extrem General: normal to inspection, full ROM and capillary refill normal Psych Appearance: grossly normal Mental Status: mental status grossly normal Course <KYRA Moreno - Last Filed: 12/03/19 16:27> Vital Signs Vital signs: Vital Signs Respiratory Rate 16 12/03/19 12:05 Pulse Oximetry 95 12/03/19 12:05 Temperature 36.6 C 12/03/19 12:06 Temperature Source Temporal Artery Scan 12/03/19 12:06 Pulse 90 12/03/19 12:30 Pulse 88 12/03/19 13:30 Respiratory Rate 13 12/03/19 13:30 Respiratory Effort 12/03/19 12:22 Respiratory Depth Normal 12/03/19 12:22 Respiratory Pattern Normal 12/03/19 12:22 Blood Pressure 124/56 L 12/03/19 12:30 Blood Pressure Mean 70 12/03/19 12:30 Blood Pressure Position Supine 12/03/19 12:06 Pulse Oximetry 89 L 12/03/19 13:20 Oxygen Delivery Method Room Air 12/03/19 12:06 Oxygen Flow Rate 0 12/03/19 12:06 Pain Level 8 12/03/19 12:06 Lab/Test Results Lab/Test Results: Laboratory Tests Range/Units 12/03/19 12/03/19 12/03/19 12:25 12:25 14:20 WBC (4.4-10.8) 10^3/uL 15.23 H RBC (3.93-5.22) 10^6/uL 3.71 L Hgb (11.2-15.7) g/dL 10.7 L Hct (36.0-46.0) % 35.3 L MCV (80-95) fL 95.1 H MCH (27.0-33.0) pg 28.8 MCHC (32.0-36.0) % 30.3 L RDW (11.7-14.6) % 16.5 H Plt Count (130-400) 10^3/uL 468 H MPV (8.0-11.0) fL 9.5 Immature Gran % 0.6 Neutrophils % 85.6 Band Neutrophils % Lymphocytes % 7.3 Atypical Lymphs % Monocytes % 4.1 Eosinophils % 2.1 Basophils % 0.3 Metamyelocytes % Myelocytes % Promyelocytes % Other Cells % Nucleated RBC % % 0 Absolute Neutrophils (1.2-6.7) 10^3/uL 13.04 H Absolute Lymphocytes (1.2-3.4) 10^3/uL 1.11 L Absolute Monocytes (0.1-0.8) 10^3/uL 0.62 Absolute Eosinophils (0.0-0.7) 10^3/uL 0.32 Absolute Basophils (0.0-0.2) 10^3/uL 0.05 RBC Morphology Polychromasia Hypochromasia Poikilocytosis Basophilic Stippling Anisocytosis Microcytosis Macrocytosis Spherocytes Tear Drop Cells Ovalocytes Stomatocytes [place] Bodies [place] Cells/Echinocytes Acanthocytes (Spur) Schistocytes Sodium (136-145) mmol/L 139 Potassium (3.5-5.1) mmol/L 4.1 Chloride (98-107) mmol/L 103 Carbon Dioxide (21.0-32.0) mmol/L 32.7 H Anion Gap (3-11) mmol/L 3.3 BUN (7-18) mg/dL 24 H Creatinine (0.55-1.02) mg/dL 0.98 Estimated GFR/1.73 m2 (mL/min/1.73m2) 54.61 Glucose (74-106) mg/dL 135 H Calcium (8.5-10.1) mg/dL 10.5 H Magnesium (1.8-2.4) mg/dL 2.0 Total Bilirubin (0.2-1.0) mg/dL 0.5 AST (15-37) U/L 23 ALT (14-59) U/L 28 Alkaline Phosphatase (46-116) U/L 133 H Troponin I (<0.06) ng/mL 0.16 H* Total Protein (6.4-8.2) g/dL 7.1 Albumin (3.4-5.0) g/dL 2.5 L TSH (0.36-3.74) uIU/mL 2.44 Urine Color (Yellow) Yellow Urine Clarity (Clear) Sl cloudy Urine pH (5-8) 5.5 Ur Specific [place] (1.005-1.025) >= 1.030 H Urine Protein (Negative) mg/dL Negative Urine Ketones (Negative) mg/dL Negative Urine Blood (Negative) Negative Urine Nitrite (Negative) Negative Urine Bilirubin (Negative) Negative Urine Urobilinogen (Up TO 0.2) EU/dL 0.2 Ur Leukocyte Esterase (Negative) Negative Urine Glucose (Negative) mg/dL Negative Range/Units 12/03/19 12/03/19 12/03/19 14:43 14:43 17:43 WBC (4.4-10.8) 10^3/uL Cancelled RBC (3.93-5.22) 10^6/uL Cancelled Hgb (11.2-15.7) g/dL Cancelled Hct (36.0-46.0) % Cancelled MCV (80-95) fL Cancelled MCH (27.0-33.0) pg Cancelled MCHC (32.0-36.0) % Cancelled RDW (11.7-14.6) % Cancelled Plt Count (130-400) 10^3/uL Cancelled MPV (8.0-11.0) fL Cancelled Immature Gran % Cancelled Neutrophils % Cancelled Band Neutrophils % Cancelled Lymphocytes % Cancelled Atypical Lymphs % Cancelled Monocytes % Cancelled Eosinophils % Cancelled Basophils % Cancelled Metamyelocytes % Cancelled Myelocytes % Cancelled Promyelocytes % Cancelled Other Cells % Cancelled Nucleated RBC % % Cancelled Absolute Neutrophils (1.2-6.7) 10^3/uL Cancelled Absolute Lymphocytes (1.2-3.4) 10^3/uL Cancelled Absolute Monocytes (0.1-0.8) 10^3/uL Cancelled Absolute Eosinophils (0.0-0.7) 10^3/uL Cancelled Absolute Basophils (0.0-0.2) 10^3/uL Cancelled RBC Morphology Cancelled Polychromasia Cancelled Hypochromasia Cancelled Poikilocytosis Cancelled Basophilic Stippling Cancelled Anisocytosis Cancelled Microcytosis Cancelled Macrocytosis Cancelled Spherocytes Cancelled Tear Drop Cells Cancelled Ovalocytes Cancelled Stomatocytes Cancelled [place] Bodies Cancelled [place] Cells/Echinocytes Cancelled Acanthocytes (Spur) Cancelled Schistocytes Cancelled Sodium (136-145) mmol/L Potassium (3.5-5.1) mmol/L Chloride (98-107) mmol/L Carbon Dioxide (21.0-32.0) mmol/L Anion Gap (3-11) mmol/L BUN (7-18) mg/dL Creatinine (0.55-1.02) mg/dL Estimated GFR/1.73 m2 (mL/min/1.73m2) Glucose (74-106) mg/dL Calcium (8.5-10.1) mg/dL Magnesium (1.8-2.4) mg/dL Cancelled Total Bilirubin (0.2-1.0) mg/dL AST (15-37) U/L ALT (14-59) U/L Alkaline Phosphatase (46-116) U/L Troponin I (<0.06) ng/mL Cancelled Cancelled Total Protein (6.4-8.2) g/dL Albumin (3.4-5.0) g/dL TSH (0.36-3.74) uIU/mL Urine Color (Yellow) Urine Clarity (Clear) Urine pH (5-8) Ur Specific [place] (1.005-1.025) Urine Protein (Negative) mg/dL Urine Ketones (Negative) mg/dL Urine Blood (Negative) Urine Nitrite (Negative) Urine Bilirubin (Negative) Urine Urobilinogen (Up TO 0.2) EU/dL Ur Leukocyte Esterase (Negative) Urine Glucose (Negative) mg/dL Critical Care Time <KYRA Moreno - Last Filed: 12/03/19 16:27> Critical Care Time Critical Care Time: Yes Total Critical Care Time: 40 Attestation: Upon my evaluation, this patient had a high probability of clinically significant, life-threatening deterioration due to their current medical conditions, which required my direct attention, intervention, and personal management. I have personally provided greater than 30 minutes of critical care time exclusive of the time spend on separately billable procedures. Time includes obtaining a history, examining the patient, pulse oximetry, review of laboratory data, radiology results, discussion with consultants, arranging urgent treatment with development of a management plan, evaluation of patient's response to treatment, and monitoring for potential decompensation. Interventions were performed as documented above.
--- NOTE | 2019-12-03 15:33 | W.PM.HP.N ---
Date of service: 12/03/19 Time of Service: 15:33 Assessment and Plan Assessment and plan (1) Essential hypertension: Status: Acute Assessment and plan: Controlled Cont metoprolol Monitor (2) Decubitus ulcer of coccyx: Status: Acute Assessment and plan: Not acute. Will evaluate more closely upon admission to the med-surg unit. Qualifiers: Pressure injury stage: unspecified pressure injury stage Qualified Code(s): L89.159 - Pressure ulcer of sacral region, unspecified stage (3) Collapse of left lung: Status: Acute Assessment and plan: Atelectesis vs pneumothorax Seen on XRAY and CT chest. No obstructing lesion or pneumonia seen. No respiratory distress; stable on RA Cont to evaluate for etiology (4) Leukocytosis, unspecified: Status: Acute Assessment and plan: No pneumonia noted on radiology. Procalcitonin pending. UA negative for infectious process. Cont to evaluate and monitor (5) Cognitive decline: Status: Acute Assessment and plan: At baseline per daughter (6) Weakness: Status: Acute Assessment and plan: Generalized. Etiology unclear; occuring in presence of collapsed left lung and elevated WBC count. Ongoing investigation. History of Present Illness History of Present Illness Chief Complaint: generalized weakness Narrative: This is an 79 yo female with a h/o HTN, COPD, decubitus ulcer of coccyx, microcytic anemia, baseline confusion. She lives with her daughter. Daughter endorsed that the patient appeared her normal self prior to breakfast then appeared somewhat more tired than usual with generalized weakness. She also c/o mild headache but daugher states she often has headaches. DAVIS was described as dull and left sided. No SOA, cough, F/C. No urinary frequency, dysuria. She is a DNR/DNI Review of Systems All systems reviewed & are unremarkable except as noted in HPI and below PFSH Surgical History Cholecystectomy Hysterectomy, 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 Sister Stroke Brother Hyperlipidemia Brother Substance abuse Alcohol abuse Son Hyperlipidemia Daughter Diabetes Daughter Alcohol abuse Daughter No problems noted. Grandfather Heart disease Grandfather Heart disease Grandmother Diabetes Grandmother Heart disease Social History Smoking/Tobacco Use Status: Former Tobacco Use Alcohol Intake: former Drug use: Never Do you feel safe at home: Yes Do you feel safe in your relationship?: Yes Meds Home Medications and Allergies Home Medications Medication Instructions Recorded Confirmed Type One Daily Women's 1 tab-cap PO DAILY tab-cap 07/13/12 12/03/19 History aspirin [Ecotrin Low Strength] 1 tab PO DAILY 07/13/12 12/03/19 History vitamin E 1 cap PO DAILY 07/13/12 12/03/19 History Narcotic Contract 01/12/13 12/19/14 History bupropion HCl [Wellbutrin SR] 1 tab PO DAILY #90 tab 03/11/16 12/03/19 History levothyroxine 75 mcg PO DAILY #90 tab-cap 03/11/16 12/03/19 History quetiapine [Seroquel] 1 tab PO HS #90 tab-cap 03/11/16 12/03/19 History Narcan 4 mg NS ONCE PRN #2 spray 08/07/16 12/03/19 History morphine 15 mg PO .EVERY OTHER AMY #15 08/07/16 12/03/19 History tab-cap morphine 30 mg PO QAM #11 tab 10/29/16 12/03/19 History folic acid 1 mg PO DAILY tab 06/01/17 12/03/19 Rx calcium carbonate-vitamin D3 1 tab PO DAILY 12/03/19 12/03/19 History [Caltrate 600 plus D] lidocaine 1 applic TOPICAL .2-3 X DAILY 12/03/19 12/03/19 History methotrexate sodium 15 mg PO .Q Thursday12/03/19 12/03/19 History metoprolol tartrate 25 mg PO BID 12/03/19 12/03/19 History morphine 30 mg PO .EVERY OTHER AMY 12/03/19 12/03/19 History Allergies Allergy/AdvReac Type Severity Reaction Status Date / Time No Known Allergies Allergy Unverified 12/03/19 12:13 Exam Const General: cooperative, no acute distress and lethargic Nutritional Appearance: overweight Orientation: confused HENMT Head: atraumatic Neck Neck: normal visual inspection and full ROM Resp Effort & Inspection: normal respiratory effort Auscultation: clear to auscultation bilaterally, breath sounds absent on th left and other (clear breath sounds on R) Cardio Jugular venous pressure: no JVD Rate: regular rate Rhythm: regular rhythm Heart Sounds: S1 normal and S2 normal GI Inspection: normal to inspection Palpation: soft Auscultation: normal bowel sounds Skin General skin exam: no rashes or lesions noted Extrem General: normal to inspection and no pedal edema Psych Appearance: grossly normal Speech and Movement: delayed speech and other (Doesn't complete sentences.) Mood: euthymic mood Affect: blunted Attitude: cooperative Thought Process: impoverished Thought Content: normal Insight: poor Results Labs Result diagrams: 12/03/19 12:25 12/03/19 12:25 Labs: Laboratory Results - last 24 hr 12/03/19 12/03/19 12/03/19 12:25 12:25 14:20 WBC 15.23 H RBC 3.71 L Hgb 10.7 L Hct 35.3 L MCV 95.1 H MCH 28.8 MCHC 30.3 L RDW 16.5 H Plt Count 468 H MPV 9.5 Immature Gran % 0.6 Neutrophils % 85.6 Band Neutrophils % Lymphocytes % 7.3 Atypical Lymphs % Monocytes % 4.1 Eosinophils % 2.1 Basophils % 0.3 Metamyelocytes % Myelocytes % Promyelocytes % Other Cells % Nucleated RBC % 0 Absolute Neutrophils 13.04 H Absolute Lymphocytes 1.11 L Absolute Monocytes 0.62 Absolute Eosinophils 0.32 Absolute Basophils 0.05 RBC Morphology Polychromasia Hypochromasia Poikilocytosis Basophilic Stippling Anisocytosis Microcytosis Macrocytosis Spherocytes Tear Drop Cells Ovalocytes Stomatocytes [place] Bodies [place] Cells/Echinocytes Acanthocytes (Spur) Schistocytes Sodium 139 Potassium 4.1 Chloride 103 Carbon Dioxide 32.7 H Anion Gap 3.3 BUN 24 H Creatinine 0.98 Estimated GFR/1.73 m2 54.61 Glucose 135 H Calcium 10.5 H Magnesium 2.0 Total Bilirubin 0.5 AST 23 ALT 28 Alkaline Phosphatase 133 H Troponin I 0.16 H* Total Protein 7.1 Albumin 2.5 L TSH 2.44 Urine Color Yellow Urine Clarity Sl cloudy Urine pH 5.5 Ur Specific [place] >= 1.030 H Urine Protein Negative Urine Ketones Negative Urine Blood Negative Urine Nitrite Negative Urine Bilirubin Negative Urine Urobilinogen 0.2 Ur Leukocyte Esterase Negative Urine Glucose Negative 12/03/19 12/03/19 12/03/19 14:43 14:43 17:43 WBC Cancelled RBC Cancelled Hgb Cancelled Hct Cancelled MCV Cancelled MCH Cancelled MCHC Cancelled RDW Cancelled Plt Count Cancelled MPV Cancelled Immature Gran % Cancelled Neutrophils % Cancelled Band Neutrophils % Cancelled Lymphocytes % Cancelled Atypical Lymphs % Cancelled Monocytes % Cancelled Eosinophils % Cancelled Basophils % Cancelled Metamyelocytes % Cancelled Myelocytes % Cancelled Promyelocytes % Cancelled Other Cells % Cancelled Nucleated RBC % Cancelled Absolute Neutrophils Cancelled Absolute Lymphocytes Cancelled Absolute Monocytes Cancelled Absolute Eosinophils Cancelled Absolute Basophils Cancelled RBC Morphology Cancelled Polychromasia Cancelled Hypochromasia Cancelled Poikilocytosis Cancelled Basophilic Stippling Cancelled Anisocytosis Cancelled Microcytosis Cancelled Macrocytosis Cancelled Spherocytes Cancelled Tear Drop Cells Cancelled Ovalocytes Cancelled Stomatocytes Cancelled [place] Bodies Cancelled Patrice Cells/Echinocytes Cancelled Acanthocytes (Spur) Cancelled Schistocytes Cancelled Sodium Potassium Chloride Carbon Dioxide Anion Gap BUN Creatinine Estimated GFR/1.73 m2 Glucose Calcium Magnesium Cancelled Total Bilirubin AST ALT Alkaline Phosphatase Troponin I Cancelled Cancelled Total Protein Albumin TSH Urine Color Urine Clarity Urine pH Ur Specific [place] Urine Protein Urine Ketones Urine Blood Urine Nitrite Urine Bilirubin Urine Urobilinogen Ur Leukocyte Esterase Urine Glucose Last Vital Signs Temp 36.6 C 12/03/19 12:06 Pulse 90 12/03/19 12:30 Resp 13 12/03/19 13:30 BP 124/56 L 12/03/19 12:30 Pulse Ox 89 L 12/03/19 13:20 COVID-19 Screening Have you,or household,traveled outside [place] in last 14 days?: No Had IN PERSON contact w/suspected or confirmed C-19 person: No
--- NOTE | 2019-12-03 15:42 | DI.VRAD_ITS ---
PROCEDURE INFORMATION: Exam: CT Chest With Contrast Exam date and time: 12/03/2019 2:28 PM Age: 79 years old Clinical indication: Other: Weakness TECHNIQUE: Imaging protocol: Computed tomography of the chest with intravenous contrast. COMPARISON: XR CHEST 1V IN DI DEPT 12/03/2019 12:49 PM FINDINGS: Lungs: There is complete collapse of left lung with mild to moderate left-sided pleural effusion. There is central hypodensity within left lung which is 7.6 x 5.4 cm and extends centrally to level of left main bronchus raising the suspicious of endoluminal bronchial mass which could be necrotic. There is mild reticular interstitial thickening, ground-glass densities in the right peripheral and basilar lung, which represents mild chronic interstitial lung disease. No overt traction bronchiectasis or honeycombing. There is no right pleural effusion. There is dependent atelectasis of right lung lobe. Pleural space: No pneumothorax. Heart: There is elevation of left hemidiaphragm and leftward shift of mediastinal structures and heart, consistent with left-sided collapse. There is mild calcification of aortic valve. There is moderate calcification of arch of aorta. There are calcifications of coronary arteries, more pronounced in that left LAD and circumflex. Mediastinal space: Central trachea and right bronchus are patent. Left bronchus is not visualized beyond left main bronchus, suspicious of mucous plug or endobronchial mass. Pulmonary arteries: There is no visible intraluminal defect in the pulmonary artery, however, the bolus is suboptimal. Aorta: See Heart finding. There is no aortic dissection. Lymph nodes: There are shotty lymph nodes in the mediastinum, no abnormal lymphadenopathy by size or by morphology . Liver: There is hepatic steatosis. Gallbladder and bile ducts: Patient is status post cholecystectomy. There is mild dilatation of intra and extrahepatic biliary tree which could be seen with cholecystectomy and advanced age. Spleen: There is mild diverticulosis of splenic flexure of the large bowel. There are calcifications of visualized abdominal aorta and splenic artery. Kidneys and ureters: There is mild cortical atrophy of bilateral kidneys. There is an exophytic right renal cyst. Bones/joints: There is mild dextroscoliosis of thoracic spine. There is mild loss of height of T7 and T8 vertebral bodies which could be due to chronic insufficiency Soft tissues: Unremarkable. IMPRESSION: 1. Complete collapse of left lung with mild to moderate left-sided pleural effusion. Left bronchus is not visualized beyond left main bronchus suspicious of endoluminal central bronchial mass or large mucous plug. There is central hypodensity within the collapsed lung raising the suspicion of mass or part of the lung which could be necrotic or markedly compressed. There is leftward shift of midline mediastinal structures. 2. Hepatic steatosis. 3. Mild chronic interstitial lung disease in the right lung. 4. Mild intra and extrahepatic biliary dilatation which is thought to be due to cholecystectomy and advanced age. 5. Mild loss of height of T7 and T8, which is thought to be due to chronic insufficiency basis. Dictated and Authenticated by: Lokesh Valenzuela MD. Ordering:TREVA Rowan MD
[2019-12-03 15:55] LABS: Troponin I 0.14 ng/mL (<0.06)
[2019-12-03 15:57] LABS: Procalcitonin 0.1 ng/mL
[2019-12-03 17:02] LABS: ALT 25 U/L (14-59); AST 25 U/L (15-37); Albumin 2.2 g/dL (3.4-5.0); Alkaline Phosphatase 120 U/L (46-116); Anion Gap 4.4 mmol/L (3-11); BUN 23 mg/dL (7-18); Bilirubin, Total 0.4 mg/dL (0.2-1.0); CO2 30.6 mmol/L (21.0-32.0); CREATININE 0.97 mg/dL (0.55-1.02); Calcium 10.1 mg/dL (8.5-10.1); Chloride 102 mmol/L (98-107); Estimated GFR 55.26 (mL/min/1.73m2); Glucose 115 mg/dL (74-106); Potassium 4.2 mmol/L (3.5-5.1); Sodium 137 mmol/L (136-145); Total Protein 6.4 g/dL (6.4-8.2)
--- NOTE | 2019-12-03 18:36 | WOUNDCONS_ITS ---
- If Service Date Differs Date of service: 12/03/19 Time of Service: 18:00 Wound Initial Evaluation Narrative: Patient is an 79 yof , who is admitted under hospitalist service for Possible NSTEMI and Leukocytosis. Her H&P, labs allergies and other pertinent data were reviewed. patient adamantly refused to have pictures taken, but allowed wound team to look at wound and make a recommendation. - Wound Left Lumbar/Sacral Wound Type: Pressure Ulcer Pressure Ulcer Stage: Eschar/Unstageable Wound General Appearance: Reddened, Blackened, Necrotic, Unapproximated Wound Bed Greatest Portion: Black (Eschar) Wound Bed Lesser Portion: Yellow (Slough) Wound Surrounding Tissue Appearance: Dark Red, Blanched/Dull Percent of Wound Bed Granulated/Red: 0 Percent of Wound Bed Slough/Yellow: 20 Percent of Wound Bed Eschar/Black: 80 Wound Length: 2.9 cm Wound Width: 3.9 cm Wound Depth: 0.2 cm (greater than) Wound Drainage Amount: None Wound Drainage Odor: None/Absent Wound Topical Solution/Irrigant: Antibiotic Irrigant Wound Debridement Method: Mechanical Wound Debridement Result: Necrotic Remains Wound Debridement Amount of Tissue Removed: None Lumbar/Sacral Wound Type: Pressure Ulcer Pressure Ulcer Stage: II Wound General Appearance: Clean/Dry, Unapproximated Wound Bed Greatest Portion: Pale [place] Wound Surrounding Tissue Appearance: Dark Red, Blanched/Dull Percent of Wound Bed Granulated/Red: 100 (pink non granulating) Wound Length: 2.9 cm Wound Width: 1.9 cm Wound Depth: 0.1 cm Wound Drainage Odor: None/Absent Wound Topical Solution/Irrigant: Antibiotic Irrigant Wound Debridement Method: Mechanical Wound Debridement Result: Healthy Tissue Revealed Wound Debridement Amount of Tissue Removed: Minimal Right Lumbar/Sacral Wound Type: Pressure Ulcer Pressure Ulcer Stage: II Wound General Appearance: Clean/Dry, Unapproximated Wound Bed Greatest Portion: Pale [place] Wound Surrounding Tissue Appearance: Dark Red, Blanched/Dull Percent of Wound Bed Granulated/Red: 100 (pink non granulating) Wound Length: 1.2 cm Wound Width: 0.9 cm Wound Depth: 0.1 cm - Circulation, Sensation, Motion Peripheral Pulse Strength: Normal Capillary Refill: Less than 3 seconds Sensation Description: Within Normal Limits Skin Temperature: Warm Skin Color: Pale - [id number] Comment:: not indicated - Pain Pain Level: 4 (with debridement) Patient presents with 1 unstageable and 2 stage PI. Patient will need assist ance to reposition, staff is aware to repositon patient every 2 hours - Treatment/Dressing Change Topicals/Ointments: Anasept Gel Cleanse With: Anasept Dressing Types: Mepilex w/Border - Recomendation Recomendation:: Unstageable PI Left gluteal cleanse with Anasept spray, and Debrisoft lolly, then pat dry. apply Anasept gel to the wound base. Apply skin prep to the marshall wound skin Cover with Mepilex sacral . Change every 3 days or prn if soiled or dislodged Stage 2 Left Gluteal cleanse with Anasept spray and debrisoft lolly. then pat dry. Apply skin prep to the periwound skin. Cover with Mepilex sacral. Change every 3 days or prn if soiled or dislodged Stage 2 right gluteal. Cleanse with Anasept spray and Debrisoft lolly. Then pat dry. Apply skin prep to the marshall wound skin. Cover with Mepilex sacral Change every 3 days or prn if soiled or dislodged Physcian/Nurse Practioner Notified: Yes (Dr. Dolan) Treatment Time - Time Total Time Spent with Patient: 35 minutes - Patient Will be Seen Weekly Treatment: 3x/wk - For: For:: 1 week
[2019-12-03] MEDS: Metoprolol 25 MG TAB PO (20:26)
[2019-12-03] MEDS: Enoxaparin 40 MG/0.4 ML SYR SC (20:27)
[2019-12-03] MEDS: QUEtiapine 25 MG TAB 50 MG PO (22:01)
[2019-12-04 03:48] VITALS: BP 97/52; PULSE 99; RESP 16; TEMP 36.9; O2SAT 92
[2019-12-04 07:40] LABS: Abs Immature Grans 0.07 10^3/uL (0.0-0.06); Absolute Basophil Count 0.04 10^3/uL (0.0-0.2); Absolute Monocyte Count 0.57 10^3/uL (0.1-0.8); Basophils % 0.3; Eosinophils % 1.5; HCT 31.1 % (36.0-46.0); HGB 9.7 g/dL (11.2-15.7); Immature Grans % 0.5; Lymphocytes % 7.7; MCH 29.3 pg (27.0-33.0); MCHC 31.2 % (32.0-36.0); MPV 9.8 fL (8.0-11.0); Nucleated RBC 0 %; Platelet Count 431 10^3/uL (130-400); RBC 3.31 10^6/uL (3.93-5.22); RDW 16.4 % (11.7-14.6); RDW-SD 56.2 fL; WBC 14.21 10^3/uL (4.4-10.8)
[2019-12-04 07:42] LABS: Absolute Eosinophil Count 0.21 10^3/uL (0.0-0.7); Absolute Lymphocyte Count 1.09 10^3/uL (1.2-3.4); Absolute Neutrophil Count 12.22 10^3/uL (1.2-6.7)
[2019-12-04 07:45] LABS: Anion Gap 5.8 mmol/L (3-11); BUN 20 mg/dL (7-18); CO2 29.2 mmol/L (21.0-32.0); CREATININE 0.96 mg/dL (0.55-1.02); Chloride 101 mmol/L (98-107); Estimated GFR 55.92 (mL/min/1.73m2); Glucose 109 mg/dL (74-106); Sodium 136 mmol/L (136-145)
[2019-12-04 07:48] VITALS: BP 143/80; PULSE 97; RESP 17; TEMP 36.7; O2SAT 93
[2019-12-04] MEDS: Aspirin E.C. 81 MG TABEC PO (08:07)
[2019-12-04] MEDS: Folic Acid 1 MG TAB PO (08:08)
[2019-12-04] MEDS: buPROPion-CR 100 MG TABCR PO (08:08)
[2019-12-04] MEDS: Metoprolol 25 MG TAB PO ×2 (08:08→20:42)
[2019-12-04 11:16] LABS: COVID-19 RT-PCR UVMMC Result Negative (Negative)
[2019-12-04] MEDS: VANCOMYCIN 750 MG in Normal Saline 250 ML 250 MG IV ×2 (11:19→23:30)
[2019-12-04] MEDS: Acetaminophen 325 MG TAB 650 MG PO (11:50)
[2019-12-04] MEDS: CEFEPIME 2 GM in Normal Saline 100 ML IVPB ×2 (12:48→23:29)
--- NOTE | 2019-12-04 14:12 | W.PM.PROGNOT ---
Date of Service Date of service: 12/04/19 Time of Service: 14:12 Assessment and Plan Assessment and plan (1) Leukocytosis, unspecified: Status: Acute Assessment and plan: questionably pneumonia in collapsed L lung Cover for CAP with Rocephin and Azithromycin. Likely change to Augmentin tomorrow; possibly d/c to home. Procal was normal. Monitor WBCs (2) Non-ST elevation MS (NSTEMI): Status: Acute Assessment and plan: Pt denies any angina recently but has short term memory difficulties and is a poor historian. (3) Cognitive decline: Status: Acute Assessment and plan: No acute encephalopathy or delirium (4) Bronchial obstruction: Status: Acute Assessment and plan: CT chest shows complete L mainstem bronchus obstruction. Likely tumor. With lack of symptoms, even given her very sedentary lifestyle, this has likely developed gradually over a period of time. This presentation would be less in favor of an aspiration of a foreign body. Her daughter states someone always is with her when she eats and there has been no history of aspiration / choking. She is a DNR/DNI. She has met with palliative in the past and will continue with their services. Subjective Subjective Patient reports: no new complaints and feels better Interval history since last seen: Less fatigued today She states she is not sure she had breakfast this AM but she had eaten. No SOA, cough, F/C Exam Const General: comfortable and no acute distress Orientation: alert and oriented to person Resp Effort & Inspection: normal respiratory effort Auscultation: breath sounds absent on th left Cardio Rate: regular rate Heart Sounds: S1 normal and S2 normal Extrem General: no pedal edema and no calf tenderness Objective Objective Clinical Data: Abnormal lab results 12/03/19 12/03/19 12/03/19 Range/Units 14:20 15:30 16:30 WBC (4.4-10.8) 10^3/uL RBC (3.93-5.22) 10^6/uL Hgb (11.2-15.7) g/dL Hct (36.0-46.0) % MCHC (32.0-36.0) % RDW (11.7-14.6) % Plt Count (130-400) 10^3/uL Absolute Neutrophils (1.2-6.7) 10^3/uL Absolute Lymphocytes (1.2-3.4) 10^3/uL BUN 23 H (7-18) mg/dL Glucose 115 H (74-106) mg/dL Alkaline Phosphatase 120 H (46-116) U/L Troponin I 0.14 H* (<0.06) ng/mL Albumin 2.2 L (3.4-5.0) g/dL Ur Specific [place] >= 1.030 H (1.005-1.025) 12/04/19 12/04/19 Range/Units 06:30 06:30 WBC 14.21 H (4.4-10.8) 10^3/uL RBC 3.31 L (3.93-5.22) 10^6/uL Hgb 9.7 L (11.2-15.7) g/dL Hct 31.1 L (36.0-46.0) % MCHC 31.2 L (32.0-36.0) % RDW 16.4 H (11.7-14.6) % Plt Count 431 H (130-400) 10^3/uL Absolute Neutrophils 12.22 H (1.2-6.7) 10^3/uL Absolute Lymphocytes 1.09 L (1.2-3.4) 10^3/uL BUN 20 H (7-18) mg/dL Glucose 109 H (74-106) mg/dL Alkaline Phosphatase (46-116) U/L Troponin I (<0.06) ng/mL Albumin (3.4-5.0) g/dL Ur Specific [place] (1.005-1.025) Vital Signs Temperature 36.7 C 12/04/19 07:48 Temperature Source Tympanic 12/04/19 07:48 Pulse 97 H 12/04/19 07:48 Pulse Rhythm Regular 12/04/19 10:11 Pulse 85 12/03/19 15:40 Respiratory Rate 17 12/04/19 07:48 Respiratory Effort 12/04/19 10:11 Respiratory Depth Normal 12/04/19 10:11 Respiratory Pattern Normal 12/04/19 10:11 Blood Pressure 143/80 H 12/04/19 07:48 Blood Pressure Mean 83 12/03/19 14:15 Blood Pressure Position Supine 12/03/19 12:06 Pulse Oximetry 93 L 12/04/19 07:48 Oxygen Delivery Method Room Air 12/04/19 07:48 Oxygen Flow Rate 0 12/04/19 07:48 Pain Level 5 12/04/19 11:50 Comment 12/03/19 23:50 Intake & Output 12/03/19 12/04/19 12/04/19 23:59 11:59 23:59 Intake Total 100 / 550 450 / 550 Output Total 350 / 350 350 / 350 Balance -350 / -350 -250 / 200 450 / 200 Weight 69.5 kg Intake: IV 350 / 350 Oral 100 / 200 100 / 200 Output: Urine 350 / 350 350 / 350 Other: Urine Color Yellow Yellow Urine Appearance Clear Clear Laboratory Results WBC 14.21 10^3/uL (4.4-10.8) H 12/04/19 06:30 RBC 3.31 10^6/uL (3.93-5.22) L 12/04/19 06:30 Hgb 9.7 g/dL (11.2-15.7) L 12/04/19 06:30 Hct 31.1 % (36.0-46.0) L 12/04/19 06:30 MCV 94.0 fL (80-95) 12/04/19 06:30 MCH 29.3 pg (27.0-33.0) 12/04/19 06:30 MCHC 31.2 % (32.0-36.0) L 12/04/19 06:30 RDW 16.4 % (11.7-14.6) H 12/04/19 06:30 Plt Count 431 10^3/uL (130-400) H 12/04/19 06:30 MPV 9.8 fL (8.0-11.0) 12/04/19 06:30 Immature Gran % 0.5 12/04/19 06:30 Neutrophils % 86.0 12/04/19 06:30 Band Neutrophils % Cancelled 12/03/19 14:43 Lymphocytes % 7.7 12/04/19 06:30 Atypical Lymphs % Cancelled 12/03/19 14:43 Monocytes % 4.0 12/04/19 06:30 Eosinophils % 1.5 12/04/19 06:30 Basophils % 0.3 12/04/19 06:30 Metamyelocytes % Cancelled 12/03/19 14:43 Myelocytes % Cancelled 12/03/19 14:43 Promyelocytes % Cancelled 12/03/19 14:43 Other Cells % Cancelled 12/03/19 14:43 Nucleated RBC % 0 % 12/04/19 06:30 Absolute Neutrophils 12.22 10^3/uL (1.2-6.7) H 12/04/19 06:30 Absolute Lymphocytes 1.09 10^3/uL (1.2-3.4) L 12/04/19 06:30 Absolute Monocytes 0.57 10^3/uL (0.1-0.8) 12/04/19 06:30 Absolute Eosinophils 0.21 10^3/uL (0.0-0.7) 12/04/19 06:30 Absolute Basophils 0.04 10^3/uL (0.0-0.2) 12/04/19 06:30 RBC Morphology Cancelled 12/03/19 14:43 Polychromasia Cancelled 12/03/19 14:43 Hypochromasia Cancelled 12/03/19 14:43 Poikilocytosis Cancelled 12/03/19 14:43 Basophilic Stippling Cancelled 12/03/19 14:43 Anisocytosis Cancelled 12/03/19 14:43 Microcytosis Cancelled 12/03/19 14:43 Macrocytosis Cancelled 12/03/19 14:43 Spherocytes Cancelled 12/03/19 14:43 Tear Drop Cells Cancelled 12/03/19 14:43 Ovalocytes Cancelled 12/03/19 14:43 Stomatocytes Cancelled 12/03/19 14:43 Estrella-[place] Bodies Cancelled 12/03/19 14:43 Patrice Cells/Echinocytes Cancelled 12/03/19 14:43 Acanthocytes (Spur) Cancelled 12/03/19 14:43 Schistocytes Cancelled 12/03/19 14:43 Sodium 136 mmol/L (136-145) 12/04/19 06:30 Potassium 4.0 mmol/L (3.5-5.1) 12/04/19 06:30 Chloride 101 mmol/L (98-107) 12/04/19 06:30 Carbon Dioxide 29.2 mmol/L (21.0-32.0) 12/04/19 06:30 Anion Gap 5.8 mmol/L (3-11) 12/04/19 06:30 BUN 20 mg/dL (7-18) H 12/04/19 06:30 Creatinine 0.96 mg/dL (0.55-1.02) 12/04/19 06:30 Estimated GFR/1.73 m2 55.92 (mL/min/1.73m2) 12/04/19 06:30 Glucose 109 mg/dL (74-106) H 12/04/19 06:30 Calcium 10.0 mg/dL (8.5-10.1) 12/04/19 06:30 Magnesium Cancelled 12/03/19 14:43 Total Bilirubin 0.4 mg/dL (0.2-1.0) 12/03/19 16:30 AST 25 U/L (15-37) 12/03/19 16:30 ALT 25 U/L (14-59) 12/03/19 16:30 Alkaline Phosphatase 120 U/L (46-116) H 12/03/19 16:30 Troponin I Cancelled 12/03/19 17:43 Total Protein 6.4 g/dL (6.4-8.2) 12/03/19 16:30 Albumin 2.2 g/dL (3.4-5.0) L 12/03/19 16:30 Procalcitonin 0.1 ng/mL 12/03/19 12:25 TSH 2.44 uIU/mL (0.36-3.74) 12/03/19 12:25 Urine Color Yellow (Yellow) 12/03/19 14:20 Urine Clarity Sl cloudy (Clear) 12/03/19 14:20 Urine pH 5.5 (5-8) 12/03/19 14:20 Ur Specific [place] >= 1.030 (1.005-1.025) H 12/03/19 14:20 Urine Protein Negative mg/dL (Negative) 12/03/19 14:20 Urine Ketones Negative mg/dL (Negative) 12/03/19 14:20 Urine Blood Negative (Negative) 12/03/19 14:20 Urine Nitrite Negative (Negative) 12/03/19 14:20 Urine Bilirubin Negative (Negative) 12/03/19 14:20 Urine Urobilinogen 0.2 EU/dL (Up TO 0.2) 12/03/19 14:20 Ur Leukocyte Esterase Negative (Negative) 12/03/19 14:20 Urine Glucose Negative mg/dL (Negative) 12/03/19 14:20 COVID-19 PCR Negative (Negative) 12/03/19 14:50 Nasopharyn COVID-19 PCR Not Applicable 12/03/19 14:50 [facility] Test [facility] 12/03/19 14:50
--- NOTE | 2019-12-04 14:32 | PDOC.CMIN ---
- If Service Date Differs Date of service: 12/04/19 Time of Service: 14:32 Care Management Initial Assess REASON FOR HOSPITALIZATION:: Opacification of lung, history of COPD, elevated WBC PAST MEDICAL HISTORY/PAST SURGICAL HISTORY:: Medical: HTN, hyperlipidemia, bipolar, depression, H/O psychotic break, OA, chronic pain syndrome, RA. Surgical: knee arthroscopy, cholecystectomy, hysterectomy, tubal ligation, 2 back surgeries. PREVIOUS FUNCTIONAL STATUS/SOCIAL/FAMILY SUPPORTS:: Shelia lives with her daughter Mena in [place], [place]. She has highest needs choices for care and Christine Mancilla is her case management assistant. Daughter is not present at time of interview, Shelia thinks that she uses a walker for ambulation. She is not able to reveal more at this time. CURRENT FUNCTIONAL STATUS:: Shelia appears confused she does make good eye contact and able to answer some questions. Her daughter is in route, CM will need to finsh assessment with her present. ADVANCE DIRECTIVES:: Document on file at [facility]. Her daughter Mena Julien is agent, and Jolene Ramos as alternate. Has patient been provided with info about the portal/API?: No Did the patient sign up for the portal?: No CODE STATUS:: DNR/DNI INSURANCE COVERAGE / FINANCIAL ISSUES:: Medicare, Medicaid [facility] highest needs CURRENT HOME/COMMUNITY SERVICES/EQUIPMENT:: [facility] highest needs, through home health, [facility]. PRIMARY CARE PHYSICIAN:: [facility] POTENTIAL DISCHARGE NEEDS:: Pending disposition, Daughter provides care at home, if she returns home notification to [facility] case management assistant and may need increase services. PATIENT/FAMILY EDUCATION NEEDS:: Discharge instructions, limitations and follow up plan of care. ANTICIPATED BARRIERS TO DISCHARGE:: None identified at this time TRANSPORTATION:: Pending disposition. PLAN:: Shelia remains acute at this time. Anticipate she will return home with her daughter with continued support through home health and highest needs. CM will continue to assess and coordinate disposition services.
[2019-12-04] MEDS: Nystatin POWDER 60 GM JAR TP ×2 (14:46→20:43)
[2019-12-04 16:10] VITALS: BP 116/77; PULSE 84; RESP 18; TEMP 36.6; O2SAT 94
[2019-12-04] MEDS: Normal Saline Flush 10 ML SYR IVP (20:42)
[2019-12-04] MEDS: Enoxaparin 40 MG/0.4 ML SYR SC (20:42)
[2019-12-04] MEDS: QUEtiapine 25 MG TAB 50 MG PO (20:42)
[2019-12-04 21:00] VITALS: BP 149/80; PULSE 101; RESP 18; TEMP 36.2; O2SAT 95
[2019-12-04 23:56] VITALS: BP 102/64; PULSE 78; RESP 24; TEMP 36.2; O2SAT 95
[2019-12-05 07:42] VITALS: BP 137/81; PULSE 89; RESP 17; TEMP 37; O2SAT 96
[2019-12-05] MEDS: Nystatin POWDER 60 GM JAR TP (07:51)
[2019-12-05] MEDS: Metoprolol 25 MG TAB PO (07:52)
[2019-12-05] MEDS: buPROPion-CR 100 MG TABCR PO (07:52)
[2019-12-05] MEDS: Folic Acid 1 MG TAB PO (07:52)
[2019-12-05] MEDS: Aspirin E.C. 81 MG TABEC PO (07:52)
--- NOTE | 2019-12-05 10:55 | W.PM.DS.N ---
Date of service: 12/05/19 Time of Service: 10:56 DS: Diagnosis Discharge Diagnosis (1) Leukocytosis, unspecified: Status: Acute (2) Non-ST elevation WI (NSTEMI): Status: Acute (3) Cognitive decline: Status: Acute (4) Bronchial obstruction: Status: Acute Discharge Plan Disposition Patient Disposition: HOME Condition: Poor Discharge Details Chief Complaint: GenMedical Clinical Impression: Collapse of left lung, Leukocytosis, unspecified, Weakness, Non-ST elevation WI (NSTEMI) Reason For Visit: OPACIFICATION OF LUNG Admit Date/Time: 12/03/19 14:43 Admit Provider: Kai Dolan Attending Provider: Kai Dolan Primary Care Provider: Amber Ortega ED Provider: Harpal Brush Hospital Course Hospital Course: This is an 79 yo female with a h/o HTN, COPD, decubitus ulcer of coccyx, microcytic anemia, baseline confusion. She lives with her daughter. Daughter endorsed that the patient appeared her normal self prior to breakfast then appeared somewhat more tired than usual with generalized weakness. She also c/o mild headache but daugher states she often has headaches. DAVIS was described as dull and left sided. No SOA, cough, F/C. No urinary frequency, dysuria. She is a DNR/DNI Significant finding on evaluation in the ED was a complete opacification of the left lung field. CT chest showed complete collapse of left lung with mild to moderate left-sided pleural effusion. There is central hypodensity within left lung which is 7.6 x 5.4 cm and extends centrally to level of left main bronchus raising the suspicious of endoluminal bronchial mass which could be necrotic. Discussed findings with her daughter. She has been a palliative care patient and prior to the admission the plan was to pursue hospice. Her WBC count was elevated and empiric coverage for pneumonia was initiated. She will complete a 5 day course of Augmentin at home. However, she had no cough, F/C, SOA. Home Meds and New Rx's Prescriptions: New amoxicillin-pot clavulanate [Augmentin] 875-125 mg tablet 1 tab PO BID Qty: 10 RF: 0 Continued aspirin [Ecotrin Low Strength] 81 MG tablet,delayed release (DR/EC) 1 tab PO DAILY RF: 0 NARCOTIC CONTRACT RF: 0 quetiapine [Seroquel] 50 MG tablet 1 tab PO HS Qty: 90 RF: 12 bupropion HCl [Wellbutrin SR] 100 MG tablet extended release 12 hr 1 tab PO DAILY Qty: 90 RF: 4 levothyroxine 75 MCG tablet 75 mcg PO DAILY Qty: 90 RF: 12 Narcan 4 MG spray,non-aerosol 4 mg NS ONCE PRNQty: 2 RF: 12 morphine 15 MG tablet extended release 15 mg PO .EVERY OTHER AMY Qty: 15 RF: 0 morphine 30 MG tablet extended release 30 mg PO QAM Qty: 11 RF: 0 morphine 30 mg tablet extended release 30 mg PO .EVERY OTHER AMY RF: 0 methotrexate sodium 2.5 mg tablet 15 mg PO .Q THURSDAY RF: 0 metoprolol tartrate 25 mg tablet 25 mg PO BID RF: 0 lidocaine 5 % ointment 1 applic topical .2-3 X DAILY RF: 0 Discontinued vitamin E 400 UNIT capsule 1 cap PO DAILY RF: 0 One Daily Women's 1 EACH tablet 1 tab-cap PO DAILY RF: 0 folic acid 1 MG tablet 1 mg PO DAILY RF: 0 Caltrate 600 plus D 600 mg (1,500 mg)-800 unit Tablet,Chewable 1 tab PO DAILY RF: 0 Discharge Instructions Instructions: Palliative Care (GEN) Stand Alone Forms: Nursing Discharge Form Referrals: Amber Ortega [Primary Care Provider] - (Call the office on Thursday to schedule an appointment to be seen within 2 weeks) Activity:: Patient uses wheelchair Equipment/Supplies:: No Equipment Needed Diet:: As Tolerated Discharge Orders Discharge Orders: Discharge Order (Routine); Ordered 12/05/19 Ordered By: Kai Dolan Discharge Data Discharge Comment: Patient will resume palliative services. DS: Summary Status at Discharge Functional status at discharge: wheelchair bound Overall status at discharge: patient is not back to baseline Mental Status: other (oriented to person) Speech and Movement: slowed movement Mood: congruent mood and other (oriented to person) Affect: normal affect Exam Const General: cooperative and no acute distress Nutritional Appearance: overweight Orientation: awake (lethargic) and confused Resp Effort & Inspection: normal respiratory effort Auscultation: breath sounds absent on th left Cardio Rate: regular rate Rhythm: regular rhythm Heart Sounds: S1 normal and S2 normal Neuro General: moves all extremities Extrem General: no pedal edema and no calf tenderness Psych Mental Status: other (oriented to person) Speech and Movement: slowed movement Mood: congruent mood and other (oriented to person) Affect: normal affect Attitude: cooperative DS: Data Vitals/I&O Vitals and I&O: Vital Signs Temperature 37.0 C 12/05/19 07:42 Temperature Source Temporal Artery Scan 12/05/19 07:42 Pulse 89 12/05/19 07:42 Pulse Rhythm Regular 12/05/19 10:49 Pulse 85 12/03/19 15:40 Respiratory Rate 17 12/05/19 07:42 Respiratory Effort 12/05/19 10:49 Respiratory Depth Normal 12/05/19 10:49 Respiratory Pattern Normal 12/05/19 10:49 Blood Pressure 137/81 12/05/19 07:42 Blood Pressure Mean 83 12/03/19 14:15 Blood Pressure Position Supine 12/03/19 12:06 Pulse Oximetry 96 12/05/19 07:42 Oxygen Delivery Method Room Air 12/05/19 07:42 Oxygen Flow Rate 0 12/05/19 07:42 Pain Level 0 12/05/19 07:42 Comment 12/03/19 23:50 Intake & Output 12/04/19 12/04/19 12/05/19 11:59 23:59 11:59 Intake Total 100 / 750 650 / 750 250 / 250 Output Total 350 / 800 450 / 800 Balance -250 / -50 200 / -50 250 / 250 Intake: IV 350 / 350 Oral 100 / 400 300 / 400 250 / 250 Output: Urine 350 / 800 450 / 800 Other: Urine Color Yellow Dark Ana Laura Urine Appearance Clear Clear Clear Data Completed and Pending Labs on day of discharge: Labs from last 24 hours 12/05/19 12/05/19 12/03/19 05:35 05:35 14:50 WBC Pending RBC Pending Hgb Pending Hct Pending MCV Pending MCH Pending MCHC Pending RDW Pending Plt Count Pending MPV Pending Immature Gran % Pending Neutrophils % Pending Lymphocytes % Pending Monocytes % Pending Eosinophils % Pending Basophils % Pending Absolute Neutrophils Pending Absolute Lymphocytes Pending Absolute Monocytes Pending Absolute Eosinophils Pending Absolute Basophils Pending Sodium Pending Potassium Pending Chloride Pending Carbon Dioxide Pending Anion Gap Pending BUN Pending Creatinine Pending Estimated GFR/1.73 m2 Pending Glucose Pending Calcium Pending COVID-19 PCR Negative Nasopharyn COVID-19 PCR Not Applicable Ref Test Perform Site [facility] Surgical History Cholecystectomy Hysterectomy, 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 Sister Stroke Brother Hyperlipidemia Brother Substance abuse Alcohol abuse Son Hyperlipidemia Daughter Diabetes Daughter Alcohol abuse Daughter No problems noted. Grandfather Heart disease Grandfather Heart disease Grandmother Diabetes Grandmother Heart disease Social History Smoking/Tobacco Use Status: Former Tobacco Use Alcohol Intake: former Drug use: Never Do you feel safe at home: Yes Do you feel safe in your relationship?: Yes
[2019-12-05] MEDS: Acetaminophen 325 MG TAB 650 MG PO (11:46)
--- NOTE | 2019-12-05 18:54 | PDOC.CMDIS ---
- If Service Date Differs Date of service: 12/05/19 Time of Service: 18:54 LACE Index Scoring Tool - Questions: Length of Stay (in days): 2 Acuity (Admit via E.D.?): Yes Comorbidities: Chronic Pulmonary Disease E.D. Visits: 3 - Answers: Total Score: 10 Risk of Readmission: High Risk Care Management Discharge Reason for Hospitalization: Opacification of lung, history of COPD, elevated WBC Discharge Plan: Shelia will be discharged home with her daughter. She will have continued support through and [facility] highest needs. She will transport with her daughter and follow up with her PCP and plan of care. Patient/Family Education Needs: Discharge instructions, limitations and follow up plan of care.
== END 2019-12-05 12:37 | disposition home or self-care (01) | DRG 280 ==
LOC: ER 16:05 → MS 16:06
PROVIDERS: Admitting Provider Family Medicine; Emergency Provider Physician Assistant; PCP Nurse Practitioner Family; Visit Provider Family Medicine
DX: I21.4 Non-ST elevation (NSTEMI) myocardial infarction (principal); J18.9 Pneumonia, unspecified organism; J90 Pleural effusion, not elsewhere classified; I10 Essential (primary) hypertension; J98.09 Other diseases of bronchus, not elsewhere classified; R53.1 Weakness; J44.9 Chronic obstructive pulmonary disease, unspecified; D50.9 Iron deficiency anemia, unspecified; L89.152 Pressure ulcer of sacral region, stage 2; L89.140 Pressure ulcer of left lower back, unstageable; R41.81 Age-related cognitive decline; Z66 Do not resuscitate; Z99.3 Dependence on wheelchair
CPT/HCPCS: 36415; 51702; 80048; 80053; 84145; 93005; 99222; 99233; 99239; 99291; J1650; U0003; 71045; 71260; 81003; 83735; 84443; 84484; 85025; 87070; 93010; J3490